=== PATIENT | male | born 1985 | race Caucasian/White ===

== ENCOUNTER 2017-03-26 02:02 | Emergency (ER) | payer MEDICAID, OTHER ==
--- NOTE | 2017-03-26 02:26 | ED ---
Alcohol HPI - General Source: family, EMS, RN notes reviewed Mode of arrival: EMS Limitations: altered mental status - History of Present Illness MD Complaint: alcohol intoxication <Lv Lee - Last Filed: 03/26/17 06:30> <Tushar Levi - Last Filed: 03/26/17 10:47> - General Chief Complaint: Alcohol Stated Complaint: ETOH Time Seen by Provider: 03/26/17 02:02 - History of Present Illness Initial Comments: This is a 31-year-old male was brought in by EMS for evaluation for altered mental status and lack of responsiveness. He was found lying on the side of a local street no trauma was reported the patient is reportedly drank 1 pint of liquor tonight. He does have a history apparently of methamphetamine abuse. He did respond to verbal or physical stimulation. No external signs of trauma. He did maintain his vital signs however and route. (Lv Lee) - Related Data Home Medications Medication Instructions Recorded Confirmed No Known Home Medications [No 03/26/17 03/26/17 Known Home Medications] Allergies Allergy/AdvReac Type Severity Reaction Status Date / Time No Known Allergies Allergy Verified 03/26/17 08:57 Review of Systems ROS Other: All systems not noted in ROS Statement are negative. Limitations: ROS unobtainable due to patients medical condition <Lv Lee - Last Filed: 03/26/17 06:30> ROS Other: All systems not noted in ROS Statement are negative. <Tushar Levi - Last Filed: 03/26/17 10:47> ROS Statement: Those systems with pertinent positive or pertinent negative responses have been documented in the HPI. 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 History of Any Multi-Drug Resistant Organisms: None Reported Additional Past Surgical History / Comment(s): Cardiac surgery as an , bilateral meniscus repair open, nasal reconstruction Past Psychological History: ADD/ADHD Smoking Status: Current every day smoker Past Alcohol Use History: Daily Past Drug Use History: Methamphetamine - Past Family History Father Family Medical History: Hypertension Additional Family Medical History / Comment(s): Father is age 56 with problems with addiction, hypertension, autoimmune disease unsure type, and psoratic arthritis Mother Family Medical History: No Reported History Additional Family Medical History / Comment(s): Mother is age 56 and has history of depression, possible bipolar disorder and anxiety. Patient's grandfather had bipolar disorder. Patient has 4 brothers that are healthy. He has no sisters. Patient does not have any children. <Lv Lee - Last Filed: 03/26/17 06:30> General Exam Limitations: altered mental status General appearance: obtunded Head exam: Present: atraumatic, normocephalic, normal inspection Eye exam: Present: normal appearance, PERRL, EOMI. Absent: scleral icterus, conjunctival injection, periorbital swelling ENT exam: Present: normal exam, mucous membranes moist Neck exam: Present: normal inspection. Absent: tenderness, meningismus, lymphadenopathy Respiratory exam: Present: normal lung sounds bilaterally. Absent: respiratory distress, wheezes, rales, rhonchi, stridor Cardiovascular Exam: Present: regular rate, normal rhythm, normal heart sounds. Absent: systolic murmur, diastolic murmur, rubs, gallop, clicks GI/Abdominal exam: Present: soft, normal bowel sounds. Absent: distended, tenderness, guarding, rebound, rigid Extremities exam: Present: normal inspection, full ROM, normal capillary refill. Absent: tenderness, pedal edema, joint swelling, calf tenderness Back exam: Present: normal inspection Neurological exam: Present: alert, altered, CN II-XII intact Psychiatric exam: Present: other (Unable to evaluate) Skin exam: Present: warm, dry, intact, normal color. Absent: rash <Lv Lee - Last Filed: 03/26/17 06:30> <Tushar Levi - Last Filed: 03/26/17 10:47> - General Exam Comments Initial Comments: This is a well-developed well-nourished unresponsive male (Lv Lee) Course <Lv Lee - Last Filed: 03/26/17 06:30> <Tushar Levi - Last Filed: 03/26/17 10:47> Vital Signs 03/26/17 03/26/17 03/26/17 02:03 02:25 03:15 Temperature 96 F L Pulse Rate 59 L 52 L 54 L Respiratory 14 12 10 L Rate Blood Pressure 111/70 107/59 106/59 O2 Sat by Pulse 95 100 100 Oximetry 03/26/17 03/26/17 03/26/17 04:15 05:32 05:45 Temperature Pulse Rate 56 L 62 56 L Respiratory 10 L 12 Rate Blood Pressure 101/59 119/63 116/59 O2 Sat by Pulse 100 100 100 Oximetry 03/26/17 03/26/17 03/26/17 06:45 07:41 08:00 Temperature Pulse Rate 64 64 65 Respiratory 12 12 Rate Blood Pressure 105/56 100/54 98/56 O2 Sat by Pulse 100 100 100 Oximetry 03/26/17 03/26/17 08:43 10:03 Temperature Pulse Rate 67 74 Respiratory 12 16 Rate Blood Pressure 102/56 113/59 O2 Sat by Pulse 100 99 Oximetry - Reevaluation(s) Reevaluation #1: 03/26/17 02:26 The patient did respond to sternal rub. (Lv Lee) Reevaluation #2: 03/26/17 06:30 The patient's care will be endorsed to Dr. Levi who will make the final disposition. This time the patient is just awaiting metabolism of alcohol he ingested. I did have a conversation the patient's father regarding this. (Lv Lee) Reevaluation #3: 03/26/17 08:02 Patient reevaluated and does respond to touch. Patient then falls immediately back to sleep. Patient does demonstrate protecting the airway. 03/26/17 10:46 Patient again reexamined and improved. Patient is awake, alert and oriented 3. Patient has no complaints. Patient can be discharged to parents. (Tushar Levi) Medical Decision Making - Lab Data Result diagrams: 03/26/17 02:42 03/26/17 02:42 - EKG Data -: EKG Interpreted by [place] EKG shows normal: sinus rhythm (Sinus bradycardia rate of 58. Interval 156 QRS of 96 QT since QTC of 42/473 st-t wave changes.) <Lv Lee - Last Filed: 03/26/17 06:30> - Lab Data Result diagrams: 03/26/17 02:42 03/26/17 02:42 <Tushar Levi - Last Filed: 03/26/17 10:47> - Lab Data Lab Results 03/26/17 03/26/17 03/26/17 Range/Units 02:42 02:42 02:42 WBC 4.5 (3.8-10.6) k/uL RBC 4.26 L (4.30-5.90) m/uL Hgb 14.0 (13.0-17.5) gm/dL Hct 42.6 (39.0-53.0) % MCV 99.9 (80.0-100.0) fL MCH 32.9 (25.0-35.0) pg MCHC 32.9 (31.0-37.0) g/dL RDW 14.2 (11.5-15.5) % Plt Count 292 (150-450) k/uL Neutrophils % 56 % Lymphocytes % 31 % Monocytes % 6 % Eosinophils % 4 % Basophils % 1 % Neutrophils # 2.5 (1.3-7.7) k/uL Lymphocytes # 1.4 (1.0-4.8) k/uL Monocytes # 0.3 (0-1.0) k/uL Eosinophils # 0.2 (0-0.7) k/uL Basophils # 0.0 (0-0.2) k/uL Macrocytosis Slight Sodium 147 H (137-145) mmol/L Potassium 3.9 (3.5-5.1) mmol/L Chloride 108 H (98-107) mmol/L Carbon Dioxide 26 (22-30) mmol/L Anion Gap 13 mmol/L BUN 18 (9-20) mg/dL Creatinine 0.80 (0.66-1.25) mg/dL Est GFR (MDRD) Af Amer >60 (>60 ml/min/1.73 sqM) Est GFR (MDRD) Non-Af >60 (>60 ml/min/1.73 sqM) Glucose 85 (74-99) mg/dL Calcium 8.5 (8.4-10.2) mg/dL Magnesium 2.2 (1.6-2.3) mg/dL Total Bilirubin 0.2 (0.2-1.3) mg/dL AST 46 (17-59) U/L ALT 69 (21-72) U/L Alkaline Phosphatase 76 (38-126) U/L Total Creatine Kinase 484 H (55-170) U/L CK-MB (CK-2) 6.7 H* (0.0-2.4) ng/mL CK-MB (CK-2) Rel Index 1.4 Troponin I <0.012 (0.000-0.034) ng/mL Total Protein 6.5 (6.3-8.2) g/dL Albumin 4.2 (3.5-5.0) g/dL Amylase <30 L (30-110) U/L Lipase 52 (23-300) U/L TSH 1.660 (0.465-4.680) mIU/L Urine Opiates Screen (NotDetected) Ur Oxycodone Screen (NotDetected) Urine Methadone Screen (NotDetected) Ur Propoxyphene Screen (NotDetected) Acetaminophen <10.0 ug/mL Ur Barbiturates Screen (NotDetected) U Tricyclic Antidepress (NotDetected) Ur Phencyclidine Scrn (NotDetected) Ur Amphetamines Screen (NotDetected) U Methamphetamines Scrn (NotDetected) U Benzodiazepines Scrn (NotDetected) Urine Cocaine Screen (NotDetected) U Marijuana (THC) Screen (NotDetected) Serum Alcohol 264 mg/dL 03/26/17 Range/Units 02:42 WBC (3.8-10.6) k/uL RBC (4.30-5.90) m/uL Hgb (13.0-17.5) gm/dL Hct (39.0-53.0) % MCV (80.0-100.0) fL MCH (25.0-35.0) pg MCHC (31.0-37.0) g/dL RDW (11.5-15.5) % Plt Count (150-450) k/uL Neutrophils % % Lymphocytes % % Monocytes % % Eosinophils % % Basophils % % Neutrophils # (1.3-7.7) k/uL Lymphocytes # (1.0-4.8) k/uL Monocytes # (0-1.0) k/uL Eosinophils # (0-0.7) k/uL Basophils # (0-0.2) k/uL Macrocytosis Sodium (137-145) mmol/L Potassium (3.5-5.1) mmol/L Chloride (98-107) mmol/L Carbon Dioxide (22-30) mmol/L Anion Gap mmol/L BUN (9-20) mg/dL Creatinine (0.66-1.25) mg/dL Est GFR (MDRD) Af Amer (>60 ml/min/1.73 sqM) Est GFR (MDRD) Non-Af (>60 ml/min/1.73 sqM) Glucose (74-99) mg/dL Calcium (8.4-10.2) mg/dL Magnesium (1.6-2.3) mg/dL Total Bilirubin (0.2-1.3) mg/dL AST (17-59) U/L ALT (21-72) U/L Alkaline Phosphatase (38-126) U/L Total Creatine Kinase (55-170) U/L CK-MB (CK-2) (0.0-2.4) ng/mL CK-MB (CK-2) Rel Index Troponin I (0.000-0.034) ng/mL Total Protein (6.3-8.2) g/dL Albumin (3.5-5.0) g/dL Amylase (30-110) U/L Lipase (23-300) U/L TSH (0.465-4.680) mIU/L Urine Opiates Screen Not Detected (NotDetected) Ur Oxycodone Screen Not Detected (NotDetected) Urine Methadone Screen Not Detected (NotDetected) Ur Propoxyphene Screen Not Detected (NotDetected) Acetaminophen ug/mL Ur Barbiturates Screen Not Detected (NotDetected) U Tricyclic Antidepress Not Detected (NotDetected) Ur Phencyclidine Scrn Not Detected (NotDetected) Ur Amphetamines Screen Not Detected (NotDetected) U Methamphetamines Scrn Not Detected (NotDetected) U Benzodiazepines Scrn Not Detected (NotDetected) Urine Cocaine Screen Not Detected (NotDetected) U Marijuana (THC) Screen Not Detected (NotDetected) Serum Alcohol mg/dL Disposition <Lv Lee - Last Filed: 03/26/17 06:30> Time of Disposition: 10:47 <Tushar Levi - Last Filed: 03/26/17 10:47> Clinical Impression: Alcoholic intoxication Disposition: HOME SELF-CARE Condition: Stable Instructions: Alcohol Intoxication (ED) Additional Instructions: Limit alcohol use. Follow-up with your doctor in the beginning of the week. Return for drowsiness, worsening or changing symptoms or other concerns. Referrals: Joseph Robins MD [Primary Care Provider] - 1-2 days
[2017-03-26 02:58] LABS: Basophils % (A) 1 %; CH 33.2; CHCM 33.4; Eosinophils # (A) 0.2 k/uL (0-0.7); Eosinophils % (A) 4 %; HCT 42.6 % (39.0-53.0); Luc # (Auto) 0.15; Luc % (Auto) 3; Lymphocytes # (A) 1.4 k/uL (1.0-4.8); Lymphocytes % (A) 31 %; MCH 32.9 pg (25.0-35.0); MCHC 32.9 g/dL (31.0-37.0); MCV 99.9 fL (80.0-100.0); Macrocytosis Slight; Monocytes # (A) 0.3 k/uL (0-1.0); Monocytes % (A) 6 %; Neutrophils # (A) 2.5 k/uL (1.3-7.7); Neutrophils % (A) 56 %; RBC 4.26 m/uL (4.30-5.90); RDW 14.2 % (11.5-15.5); WBC 4.5 k/uL (3.8-10.6); WBC (Perox) 4.65
[2017-03-26 03:06] LABS: ALT 69 U/L (21-72); AST 46 U/L (17-59); Acetaminophen <10.0 ug/mL; Alkaline Phosphatase 76 U/L (38-126); Amylase <30 U/L (30-110); Anion Gap 13 mmol/L; Blood Urea Nitrogen 18 mg/dL (9-20); Calcium 8.5 mg/dL (8.4-10.2); Carbon Dioxide 26 mmol/L (22-30); Chloride 108 mmol/L (98-107); Glucose 85 mg/dL (74-99); Magnesium 2.2 mg/dL (1.6-2.3); Non-African American GFR(MDRD) >60 (>60 ml/min/1.73 sqM); Potassium 3.9 mmol/L (3.5-5.1); Sodium 147 mmol/L (137-145); Total Bilirubin 0.2 mg/dL (0.2-1.3); Total Protein 6.5 g/dL (6.3-8.2)
[2017-03-26 03:14] LABS: Alcohol 264 mg/dL
[2017-03-26 03:16] LABS: Creatine Kinase 484 U/L (55-170)
--- NOTE | 2017-03-26 03:21 | XR ---
EXAM: XR Chest, 1 View CLINICAL HISTORY: Reason: pain TECHNIQUE: Frontal view of the chest. COMPARISON: No relevant prior studies available. FINDINGS: Lungs: Unremarkable. No consolidation. Pleural space: Unremarkable. No pneumothorax. Heart: Unremarkable. No cardiomegaly. Mediastinum: Unremarkable. Bones/joints: No acute fractures. IMPRESSION: No acute cardiopulmonary process.
[2017-03-26 03:29] LABS: Troponin I <0.012 ng/mL (0.000-0.034)
[2017-03-26 03:34] LABS: Creatine Kinase MB 6.7 ng/mL (0.0-2.4)
--- NOTE | 2017-03-26 03:39 | CT ---
EXAM: CT Head Without Intravenous Contrast CLINICAL HISTORY: EtOH. Unresponsive. TECHNIQUE: Axial computed tomography images of the head/brain without intravenous contrast. DLP is 1098 mGy-cm. This CT exam was performed using one or more of the following dose reduction techniques: automated exposure control, adjustment of the mA and/or kV according to patient size, and/or use of iterative reconstruction technique. Coronal and sagittal reformatted images were acquired. COMPARISON: None FINDINGS: Brain: No hemorrhage. No significant white matter disease. No edema. Likely dystrophic calcifications in the right inferior frontal lobe. No associated mass effect. Ventricles: No ventriculomegaly. Bones/joints: No acute fracture. Soft tissues: Unremarkable. Sinuses: Chronic sinusitis. Mastoid air cells: Unremarkable as visualized. No mastoid effusion. IMPRESSION: No acute infarct, hemorrhage, or mass effect. EXAM: CT Cervical Spine Without Intravenous Contrast CLINICAL HISTORY: EtOH. Unresponsive. TECHNIQUE: Axial computed tomography images of the cervical spine without intravenous contrast. DLP is 421 mGy-cm. This CT exam was performed using one or more of the following dose reduction techniques: automated exposure control, adjustment of the mA and/or kV according to patient size, and/or use of iterative reconstruction technique. Coronal and sagittal reformatted images were acquired. COMPARISON: Correlated with the earlier chest radiograph.. FINDINGS: Vertebrae: Unremarkable. No acute fracture. Discs/spinal canal/neural foramina: No acute findings. No spinal canal stenosis. Soft tissues: Unremarkable. Lung apices: Innumerable thin-walled lucencies. IMPRESSION: No acute fractures or malalignment. Query emphysematous changes in the lung apices, partially visualized. Recommend nonemergent followup to exclude other entities such as Langerhans' cell histiocytosis.
[2017-03-26 10:50] VITALS: TEMP 97.7
[2017-03-26 13:25] VITALS: BP 110/62; PULSE 65; RESP 14
== END 2017-03-26 14:21 | disposition home or self-care (01) ==
LOC: EC 02:02
DX: F10.120 Alcohol abuse with intoxication, uncomplicated (principal); R41.82 Altered mental status, unspecified; F17.200 Nicotine dependence, unspecified, uncomplicated
CPT/HCPCS: 36415; 70450; 71010; 72125; 80053; 80306; 80320; 82150; 82550; 82553; 83520; 83690; 83735; 84443; 84484; 85025; 93005; 99285

== ENCOUNTER 2017-10-21 06:27 | Inpatient (IN) | payer OTHER ==
[2017-10-21] MEDS ORDERED: KETOROLAC 60 MG/2 ML VIAL IVP STA (06:29)
[2017-10-21] MEDS ORDERED: SODIUM CHLORIDE 0.9% 500 ML IV STA (06:31)
--- NOTE | 2017-10-21 06:39 | ED ---
General Adult HPI - General Source: RN notes reviewed <Kwame Manning - Last Filed: 10/21/17 06:39> <Kwame Rojo - Last Filed: 10/21/17 09:40> - General Stated complaint: Cardiac Arrest Time Seen by Provider: 10/21/17 06:27 - History of Present Illness Initial comments: This is a 31-year-old male who presents emergency Department with a past medical history significant for drug abuse. According to the family the patient was found unresponsive and not breathing and it was 2 minutes prior to the police arriving at the house they started CPR immediately paramedics arrived shortly thereafter they continued CPR for another 10-15 minutes at which time pulses returned. Paramedics stated intubated the patient and given the patient Narcan as well as 1 of epinephrine. Since that time the patient's had a blood pressure has been tachycardic and has been completely unresponsive. Family stated that he might have taken some Xanax but they have no proof of that. According to the paramedics that patient's eyes were fixed and dilated and nonreactive on arrival prior to Narcan. Other history is available this time no family is, the patient currently (Kwame Manning) - Related Data Home Medications Medication Instructions Recorded Confirmed No Known Home Medications [No 03/26/17 03/26/17 Known Home Medications] Allergies Allergy/AdvReac Type Severity Reaction Status Date / Time No Known Allergies Allergy Verified 10/21/17 06:43 Review of Systems ROS Other: All systems not noted in ROS Statement are negative. <Kwame Manning - Last Filed: 10/21/17 06:39> ROS Other: All systems not noted in ROS Statement are negative. <Kwame Rojo - Last Filed: 10/21/17 09:40> ROS Statement: Those systems with pertinent positive or pertinent negative responses have been documented in the HPI. 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 History of Any Multi-Drug Resistant Organisms: None Reported Additional Past Surgical History / Comment(s): Cardiac surgery as an infant, bilateral meniscus repair open, nasal reconstruction Past Psychological History: ADD/ADHD Smoking Status: Current every day smoker Past Alcohol Use History: Daily Past Drug Use History: Methamphetamine - Past Family History Father Family Medical History: Hypertension Additional Family Medical History / Comment(s): Father is age 56 with problems with addiction, hypertension, autoimmune disease unsure type, and psoratic arthritis Mother Family Medical History: No Reported History Additional Family Medical History / Comment(s): Mother is age 56 and has history of depression, possible bipolar disorder and anxiety. Patient's grandfather had bipolar disorder. Patient has 4 brothers that are healthy. He has no sisters. Patient does not have any children. <Kwame Manning - Last Filed: 10/21/17 06:39> General Exam <Kwame Manning - Last Filed: 10/21/17 06:39> <Kwame Rojo - Last Filed: 10/21/17 09:40> - General Exam Comments Initial Comments: GENERAL: Patient is well-developed and well-nourished. Patient is completely unresponsive ENT: Neck is soft and supple. No significant lymphadenopathy is noted. Oropharynx is clear. Moist mucous membranes. There is no thyroid enlargement and no masses were felt. EYES: The sclera were anicteric and conjunctiva were pink and moist. Eyes are dilated bilaterally and nonreactive PULMONARY: Patient is intubated breath sounds are diminished on the left tubal be pulled back. CARDIOVASCULAR: There is a regular rate and rhythm without any murmurs gallops or rubs. ABDOMEN: Abdomen is soft and nondistended SKIN: Skin is clear with no lesions or rashes and otherwise unremarkable. NEUROLOGIC: Patient is unresponsive MUSCULOSKELETAL: Normal extremities with adequate strength and full range of motion. No lower extremity swelling or edema. (Kwame Manning) Vital Signs 10/21/17 10/21/17 10/21/17 06:38 07:03 08:58 Temperature 94.2 F L 94.5 F L Pulse Rate 114 H 102 H 101 H Respiratory 22 18 Rate Blood Pressure 143/74 136/69 133/69 O2 Sat by Pulse 99 100 Oximetry Medical Decision Making <Kwame Manning - Last Filed: 10/21/17 06:39> - Lab Data Result diagrams: 10/21/17 06:30 10/21/17 06:30 - Radiology Data Radiology results: report reviewed (CT brain negative chest x-ray positive pneumonia CTA pending), image reviewed <Kwame Rojo - Last Filed: 10/21/17 09:40> - Medical Decision Making EKG shows sinus tachycardia at 113 bpm CO interval is 154 QRS is 94 QT interval 344 QTC is 471 per patient's EKG shows some ST segment depression in leads II, III, and F aVF and slight ST segment elevation in aVR. There is also some ST segment depression in precordial leads V4 through V6. Dr. Rojo taking over the care of this patient at 7 AM (Kwame Manning) 31 male positive cardiopulmonary arrest secondary to likely overdose, patient admitted ICU for continued critical care monitoring, cardiopulmonary and hemodynamic support (Kwame Rojo) - Lab Data Lab Results 10/21/17 10/21/17 10/21/17 Range/Units 06:30 06:30 06:30 WBC 9.6 (3.8-10.6) k/uL RBC 4.11 L (4.30-5.90) m/uL Hgb 13.1 (13.0-17.5) gm/dL Hct 40.4 (39.0-53.0) % MCV 98.3 (80.0-100.0) fL MCH 31.9 (25.0-35.0) pg MCHC 32.5 (31.0-37.0) g/dL RDW 14.1 (11.5-15.5) % Plt Count 245 (150-450) k/uL Neutrophils % 87 % Lymphocytes % 10 % Monocytes % 3 % Eosinophils % 0 % Basophils % 0 % Neutrophils # 8.4 H (1.3-7.7) k/uL Lymphocytes # 1.0 (1.0-4.8) k/uL Monocytes # 0.3 (0-1.0) k/uL Eosinophils # 0.0 (0-0.7) k/uL Basophils # 0.0 (0-0.2) k/uL PT (9.0-12.0) sec INR (<1.2) APTT (22.0-30.0) sec D-Dimer (<0.60) mg/L FEU Sample Site ABG pH (7.35-7.45) ABG pCO2 (35-45) mmHg ABG pO2 (83-108) mmHg ABG HCO3 (21-25) mmol/L ABG Total CO2 (19-24) mmol/L ABG O2 Saturation (94-97) % ABG Base Excess mmol/L Matt Test FiO2 % Sodium 145 (137-145) mmol/L Potassium 4.0 (3.5-5.1) mmol/L Chloride 109 H (98-107) mmol/L Carbon Dioxide 16 L (22-30) mmol/L Anion Gap 20 mmol/L BUN 21 H (9-20) mg/dL Creatinine 1.11 (0.66-1.25) mg/dL Est GFR (MDRD) Af Amer >60 (>60 ml/min/1.73 sqM) Est GFR (MDRD) Non-Af >60 (>60 ml/min/1.73 sqM) Glucose 300 H (74-99) mg/dL POC Glucose (mg/dL) (75-99) mg/dL POC Glu Deputy Sheriff ID Calcium 8.3 L (8.4-10.2) mg/dL Total Bilirubin 0.2 (0.2-1.3) mg/dL AST 127 H (17-59) U/L ALT 142 H (21-72) U/L Alkaline Phosphatase 87 (38-126) U/L Total Creatine Kinase 169 (55-170) U/L CK-MB (CK-2) 2.7 H* (0.0-2.4) ng/mL CK-MB (CK-2) Rel Index 1.6 Troponin I <0.012 (0.000-0.034) ng/mL Total Protein 6.0 L (6.3-8.2) g/dL Albumin 3.8 (3.5-5.0) g/dL Salicylates <1.0 mg/dL Urine Opiates Screen (NotDetected) Ur Oxycodone Screen (NotDetected) Urine Methadone Screen (NotDetected) Ur Propoxyphene Screen (NotDetected) Acetaminophen <10.0 ug/mL Ur Barbiturates Screen (NotDetected) U Tricyclic Antidepress (NotDetected) Ur Phencyclidine Scrn (NotDetected) Ur Amphetamines Screen (NotDetected) U Methamphetamines Scrn (NotDetected) U Benzodiazepines Scrn (NotDetected) Urine Cocaine Screen (NotDetected) U Marijuana (THC) Screen (NotDetected) Serum Alcohol 121 mg/dL 10/21/17 10/21/17 10/21/17 Range/Units 06:30 06:30 06:38 WBC (3.8-10.6) k/uL RBC (4.30-5.90) m/uL Hgb (13.0-17.5) gm/dL Hct (39.0-53.0) % MCV (80.0-100.0) fL MCH (25.0-35.0) pg MCHC (31.0-37.0) g/dL RDW (11.5-15.5) % Plt Count (150-450) k/uL Neutrophils % % Lymphocytes % % Monocytes % % Eosinophils % % Basophils % % Neutrophils # (1.3-7.7) k/uL Lymphocytes # (1.0-4.8) k/uL Monocytes # (0-1.0) k/uL Eosinophils # (0-0.7) k/uL Basophils # (0-0.2) k/uL PT 10.5 (9.0-12.0) sec INR 1.1 (<1.2) APTT 19.6 L (22.0-30.0) sec D-Dimer 4.34 H (<0.60) mg/L FEU Sample Site ABG pH (7.35-7.45) ABG pCO2 (35-45) mmHg ABG pO2 (83-108) mmHg ABG HCO3 (21-25) mmol/L ABG Total CO2 (19-24) mmol/L ABG O2 Saturation (94-97) % ABG Base Excess mmol/L Matt Test FiO2 % Sodium (137-145) mmol/L Potassium (3.5-5.1) mmol/L Chloride (98-107) mmol/L Carbon Dioxide (22-30) mmol/L Anion Gap mmol/L BUN (9-20) mg/dL Creatinine (0.66-1.25) mg/dL Est GFR (MDRD) Af Amer (>60 ml/min/1.73 sqM) Est GFR (MDRD) Non-Af (>60 ml/min/1.73 sqM) Glucose (74-99) mg/dL POC Glucose (mg/dL) 294 H (75-99) mg/dL POC Glu Deputy Sheriff José Larson Calcium (8.4-10.2) mg/dL Total Bilirubin (0.2-1.3) mg/dL AST (17-59) U/L ALT (21-72) U/L Alkaline Phosphatase (38-126) U/L Total Creatine Kinase (55-170) U/L CK-MB (CK-2) (0.0-2.4) ng/mL CK-MB (CK-2) Rel Index Troponin I (0.000-0.034) ng/mL Total Protein (6.3-8.2) g/dL Albumin (3.5-5.0) g/dL Salicylates mg/dL Urine Opiates Screen Not Detected (NotDetected) Ur Oxycodone Screen Detected H (NotDetected) Urine Methadone Screen Not Detected (NotDetected) Ur Propoxyphene Screen Not Detected (NotDetected) Acetaminophen ug/mL Ur Barbiturates Screen Not Detected (NotDetected) U Tricyclic Antidepress Detected H (NotDetected) Ur Phencyclidine Scrn Not Detected (NotDetected) Ur Amphetamines Screen Not Detected (NotDetected) U Methamphetamines Scrn Not Detected (NotDetected) U Benzodiazepines Scrn Detected H (NotDetected) Urine Cocaine Screen Not Detected (NotDetected) U Marijuana (THC) Screen Not Detected (NotDetected) Serum Alcohol mg/dL 10/21/17 Range/Units 07:01 WBC (3.8-10.6) k/uL RBC (4.30-5.90) m/uL Hgb (13.0-17.5) gm/dL Hct (39.0-53.0) % MCV (80.0-100.0) fL MCH (25.0-35.0) pg MCHC (31.0-37.0) g/dL RDW (11.5-15.5) % Plt Count (150-450) k/uL Neutrophils % % Lymphocytes % % Monocytes % % Eosinophils % % Basophils % % Neutrophils # (1.3-7.7) k/uL Lymphocytes # (1.0-4.8) k/uL Monocytes # (0-1.0) k/uL Eosinophils # (0-0.7) k/uL Basophils # (0-0.2) k/uL PT (9.0-12.0) sec INR (<1.2) APTT (22.0-30.0) sec D-Dimer (<0.60) mg/L FEU Sample Site LRAD ABG pH 7.19 L* (7.35-7.45) ABG pCO2 40 (35-45) mmHg ABG pO2 >400 H (83-108) mmHg ABG HCO3 15 L (21-25) mmol/L ABG Total CO2 16 L (19-24) mmol/L ABG O2 Saturation 100.0 H (94-97) % ABG Base Excess -13.1 mmol/L Matt Test Yes FiO2 100 % Sodium (137-145) mmol/L Potassium (3.5-5.1) mmol/L Chloride (98-107) mmol/L Carbon Dioxide (22-30) mmol/L Anion Gap mmol/L BUN (9-20) mg/dL Creatinine (0.66-1.25) mg/dL Est GFR (MDRD) Af Amer (>60 ml/min/1.73 sqM) Est GFR (MDRD) Non-Af (>60 ml/min/1.73 sqM) Glucose (74-99) mg/dL POC Glucose (mg/dL) (75-99) mg/dL POC Glu Deputy Sheriff ID Calcium (8.4-10.2) mg/dL Total Bilirubin (0.2-1.3) mg/dL AST (17-59) U/L ALT (21-72) U/L Alkaline Phosphatase (38-126) U/L Total Creatine Kinase (55-170) U/L CK-MB (CK-2) (0.0-2.4) ng/mL CK-MB (CK-2) Rel Index Troponin I (0.000-0.034) ng/mL Total Protein (6.3-8.2) g/dL Albumin (3.5-5.0) g/dL Salicylates mg/dL Urine Opiates Screen (NotDetected) Ur Oxycodone Screen (NotDetected) Urine Methadone Screen (NotDetected) Ur Propoxyphene Screen (NotDetected) Acetaminophen ug/mL Ur Barbiturates Screen (NotDetected) U Tricyclic Antidepress (NotDetected) Ur Phencyclidine Scrn (NotDetected) Ur Amphetamines Screen (NotDetected) U Methamphetamines Scrn (NotDetected) U Benzodiazepines Scrn (NotDetected) Urine Cocaine Screen (NotDetected) U Marijuana (THC) Screen (NotDetected) Serum Alcohol mg/dL Critical Care Time Critical Care Time: Yes Total Critical Care Time: 65 <Kwame Rojo - Last Filed: 10/21/17 09:40> Disposition <Kwame Manning - Last Filed: 10/21/17 06:39> <Kwame Rojo - Last Filed: 10/21/17 09:40> Clinical Impression: Opioid use disorder, mild, abuse, Cardiac arrest, Signs of return of spontaneous circulation, Overdose, Cardiopulmonary arrest, Pneumonia Disposition: ADMITTED IP TO THIS HOSP Condition: Critical Referrals: None,Stated [Primary Care Provider] - 1-2 days
[2017-10-21 06:46] LABS: Basophils % (A) 0 %; Eosinophils % (A) 0 %; HCT 40.4 % (39.0-53.0); HGB 13.1 gm/dL (13.0-17.5); Lymphocytes % (A) 10 %; MCH 31.9 pg (25.0-35.0); MCHC 32.5 g/dL (31.0-37.0); MCV 98.3 fL (80.0-100.0); Mean Platelet Volume 8.3; Monocytes # (A) 0.3 k/uL (0-1.0); Monocytes % (A) 3 %; Neutrophils # (A) 8.4 k/uL (1.3-7.7); Neutrophils % (A) 87 %; Platelet Count 245 k/uL (150-450); RBC 4.11 m/uL (4.30-5.90); RDW 14.1 % (11.5-15.5); WBC 9.6 k/uL (3.8-10.6)
[2017-10-21 06:48] LABS: Glucose,Whole Blood 294 mg/dL (75-99)
[2017-10-21 06:55] LABS: ALT 142 U/L (21-72); AST 127 U/L (17-59); Acetaminophen <10.0 ug/mL; Albumin 3.8 g/dL (3.5-5.0); Alkaline Phosphatase 87 U/L (38-126); Anion Gap 20 mmol/L; Blood Urea Nitrogen 21 mg/dL (9-20); Calcium 8.3 mg/dL (8.4-10.2); Carbon Dioxide 16 mmol/L (22-30); Chloride 109 mmol/L (98-107); Glucose 300 mg/dL (74-99); Salicylate <1.0 mg/dL; Sodium 145 mmol/L (137-145); Total Bilirubin 0.2 mg/dL (0.2-1.3)
[2017-10-21 06:56] LABS: Alcohol 121 mg/dL
[2017-10-21 06:57] LABS: Amphetamine Screen,Urine Not Detected (NotDetected); Barbiturate Screen,Urine Not Detected (NotDetected); Benzodiazepines Screen,Urine Detected (NotDetected); Cocaine Screen,Urine Not Detected (NotDetected); Methadone Screen, Urine Not Detected (NotDetected); Opiate Screen,Urine Not Detected (NotDetected); Oxycodone Screen, Urine Detected (NotDetected); Phencyclidine Screen,Urine Not Detected (NotDetected); Tricyclic Antidepressant,Urine Detected (NotDetected); Urn Cannabinoid Scrn Not Detected (NotDetected)
[2017-10-21 07:06] LABS: ABG Base Excess -13.1 mmol/L; ABG HCO3 15 mmol/L (21-25); ABG PCO2 40 mmHg (35-45); ABG PO2 >400 mmHg (83-108); ABG TCO2 16 mmol/L (19-24)
[2017-10-21 07:06] LABS: Creatine Kinase 169 U/L (55-170)
[2017-10-21 07:10] LABS: ABG PH 7.19 (7.35-7.45)
[2017-10-21 07:20] LABS: Creatine Kinase MB 2.7 ng/mL (0.0-2.4); Troponin I <0.012 ng/mL (0.000-0.034)
--- NOTE | 2017-10-21 07:46 | XR ---
EXAMINATION: XR chest 1V portable DATE AND TIME: 10/21/2017 7:24 AM ORDERING PROVIDER: Kwame Manning CLINICAL INDICATION: Pain TECHNIQUE: PA and lateral COMPARISON: None. DESCRIPTION: ET tube tip superimposed over the mid trachea, just caudal to the level of the collicula r heads. NG tube present, its port superimposed over the heart and its tip superimposed at the expect ed position of the esophageal-gastric junction -NG tube may be better placed 12 cm distally. There are scattered linear bands of added opacity in the right upper lung zone and the left lower filomena g zone predominantly. These are consistent with multifocal regions of atelectasis,, a finding of whic h is consolidation with air bronchograms in the retrocardiac lung, consistent with clinical diagnosis of left lower lobe bronchopneumonia. There is no evidence of pulmonary edema. Cardiac silhouette unremarkable, as are the bones and soft tissues. Pleural spaces appear to be negative, but supine radiography cannot exclude pneumothorax. IMPRESSION: Dominant finding is left lower lobe consolidation with air bronchograms, consistent with a clinical d iagnosis of left lower lobe bronchopneumonia. Other findings as discussed.
--- NOTE | 2017-10-21 07:53 | CT ---
EXAMINATION: CT brain wo con DATE AND TIME: 10/21/2017 7:43 AM ORDERING PROVIDER: Kwame Manning CLINICAL INDICATION: Pain TECHNIQUE: Standard departmental protocol. DLP 1027.3 mGy-cm. COMPARISON: CT 03/26/2017 DESCRIPTION: The calvarium is intact. There is no intracranial hemorrhage. There is no mass or mass e ffect. There is no definite new attenuation defect. The previously seen lower right frontal lobe subt le curvilinear calcifications are redemonstrated, unchanged and likely incidental dystrophic calcific ations. Remainder of the intra-axial and extra-axial compartment examination is unremarkable. The paranasal sinuses, middle ear cavities, and mastoid sinus air cells are clear. The orbits are unremarkable. Note is made of symmetric atrophy of the temporalis, nonspecific but can correlate with a clinical di agnosis of bruxism. This appears slightly more prominent than the prior study. IMPRESSION: 1. NO ACUTE/INTRACRANIAL PROCESS. 2. Symmetric temporalis prominence noted, as discussed.
[2017-10-21 08:20] LABS: D-Dimer 4.34 mg/L FEU (<0.60)
[2017-10-21 08:24] LABS: INR 1.1 (<1.2); Prothrombin Time 10.5 sec (9.0-12.0)
[2017-10-21 08:37] LABS: Partial Thromboplastin Time 19.6 sec (22.0-30.0)
[2017-10-21] MEDS ORDERED: LEVOFLOXACIN 750MG-D5W PMX 750 MG in DEXTROSE/WATER 1 150ML.BAG IVPB STA (09:07)
[2017-10-21] MEDS ORDERED: RX INFO: IV CONTRAST WAS GIVEN 1 EACH MISC MISCELLANE PRN (09:08)
[2017-10-21] MEDS ORDERED: IPRATROPIUM-ALBUTEROL 3 ML NEB INHALATION PRN (09:36)
[2017-10-21] MEDS ORDERED: NALOXONE 0.4 MG/ML 1 ML VIAL IV PRN ×2 (09:36→14:15)
--- NOTE | 2017-10-21 10:37 | CT ---
CT CHEST FOR PULMONARY EMBOLISM. EXAMINATION TYPE: CT angio chest DATE OF EXAM: 10/21/2017 INDICATION: overdose, elevated d dimer CT DLP: 383.2 mGycm, Automated exposure control for dose reduction was used. CONTRAST: Patient injected with 100 mL of Omnipaque 350. COMPARISON: NONE TECHNIQUE: CT of the chest is performed on a spiral scan at 2 mm thick sections. Study is performed with intravenous contrast timed for evaluation for pulmonary embolism. This will limit additional po rtions of the evaluation. 3-D MIP images reconstructed by the technologist are reviewed on the compu ter in the coronal and sagittal planes. FINDINGS: There is an endotracheal tube present with the tip above the almita. Nasogastric tube trans verses the thorax with tip in the left upper quadrant, this is out of the [id number]. No persistent filling defects are evident to suggest an acute pulmonary embolism. Bibasilar infiltrat es are present, correlate for atelectasis or pneumonia. There is some mild infiltrate within the bila teral perihilar and right upper lobe as well. No mediastinal or hilar adenopathy enlarged by CT criteria is evident. The ascending aorta diameter at the level of the main pulmonary artery is 2.9 cm. The main pulmonary artery diameter at the bifur cation is 2.[address] section through the upper abdomen are unremarkable. IMPRESSIONS: 1. No acute pulmonary emboli. 2. Scattered infiltrates throughout the lungs. Atelectasis, pneumonia could be considered. Consider t he possibility of aspiration pneumonia.
--- NOTE | 2017-10-21 12:35 | P.CNPUL ---
History of Present Illness Consult date: 10/21/17 Reason for consult: other Chief complaint: Respiratory failure secondary to drug overdose History of present illness: Consult dated 10/21/2017 31-year-old male who we saw in the emergency department for respiratory failure secondary to drug overdose. He has an extensive history of drug abuse. The patient apparently was found by the father unresponsive. Apparently was breathing poorly breathing or may be even not breathing for at least 2 minutes prior to the police arriving. CPR was started immediately by paramedics. They continue for another 10 or 15 minutes at which time the patient had return of pulses. The patient was intubated at the scene and given Narcan as well as 1 mg her 1 amp of epinephrine. The patient's is currently in the emergency room on the ventilator. The patient's drug screen was at least positive for Tri- Cyclic antidepressants and opiates. His past medical history is positive osteoarthritis. He also apparently suffers from ADHD narcolepsy and had a ductus arteriosus. The patient has since had some additional surgeries as listed in the ER candy. He is a smoker. He apparently was recently in penitentiary for cooking up methamphetamines. He apparently also has abused alcohol. The rest of the history is not well delineated. Review of Systems ROS unobtainable: due to endotracheal tube Past Medical History Past Medical History: Osteoarthritis (OA) Additional Past Medical History / Comment(s): Narcolepsy, ADHD, patient was a preemie and underwent cardiac surgery as an . History of Any Multi-Drug Resistant Organisms: None Reported Additional Past Surgical History / Comment(s): Cardiac surgery as an , bilateral meniscus repair open, nasal reconstruction Past Psychological History: ADD/ADHD Smoking Status: Current every day smoker Past Alcohol Use History: Daily Past Drug Use History: Methamphetamine - Past Family History Father Family Medical History: Hypertension Additional Family Medical History / Comment(s): Father is age 56 with problems with addiction, hypertension, autoimmune disease unsure type, and psoratic arthritis Mother Family Medical History: No Reported History Additional Family Medical History / Comment(s): Mother is age 56 and has history of depression, possible bipolar disorder and anxiety. Patient's grandfather had bipolar disorder. Patient has 4 brothers that are healthy. He has no sisters. Patient does not have any children. Medications and Allergies Home Medications Medication Instructions Recorded Confirmed Type [id number] 295-545-33Eq 1 tab PO Q4HR PRN 10/21/17 10/21/17 History [Excedrin] Folic Acid 1 mg PO DAILY 10/21/17 10/21/17 History Gabapentin [Neurontin] 300 mg PO AC-BID 10/21/17 10/21/17 History Guaifen/Phenyleph/Acetaminophn 2 tab PO Q4H PRN 10/21/17 10/21/17 History [Tylenol Sinus Severe Caplet] Ibuprofen [Motrin Ib] 200 - 400 mg PO Q6H PRN 10/21/17 10/21/17 History Methotrexate Sodium [Methotrexate] 2.5 mg PO DAILY 10/21/17 10/21/17 History Pregabalin [Lyrica] 150 mg PO TID 10/21/17 10/21/17 History predniSONE 15 mg PO DAILY 10/21/17 10/21/17 History Allergies Allergy/AdvReac Type Severity Reaction Status Date / Time No Known Allergies Allergy Verified 10/21/17 10:24 Physical Exam Osteopathic Statement: *. No significant issues noted on an osteopathic structural exam other than those noted in the History and Physical/Consult. Vitals: Vital Signs Temp Pulse Resp BP Pulse Ox 10/21/17 10:44 110 H 18 150/82 100 10/21/17 09:50 97.9 F 113 H 18 144/75 100 10/21/17 09:33 105 H 18 143/83 100 10/21/17 08:58 101 H 133/69 10/21/17 08:33 95.7 F L 94 18 134/67 96 10/21/17 07:43 94.5 F L 95 18 139/66 100 10/21/17 07:13 90 18 135/68 100 10/21/17 07:03 94.5 F L 102 H 18 136/69 100 10/21/17 06:38 94.2 F L 114 H 22 143/74 99 Intake and Output 10/20/17 10/21/17 10/21/17 22:59 06:59 14:59 Output Total 600 Balance -600 Output: Urine 600 Uretheral (Mendoza) 600 Other: Weight 76.657 kg No acute distress, The patient is sedated, and has an orally placed endotracheal tube and NG tube HEENT examination is grossly unremarkable. Mucous membranes are moist. No oral lesions. Pupillary response is intact. Neck supple. Full range of motion. No adenopathy thyromegaly or neck vein distention. Cardiovascular examination reveals regular rhythm rate. S1-S2 normal. No S3 or S4. No discernible murmur noted. Lungs reveal diffuse rhonchi. Breath sounds are equal. No wheezes. No crackles. Abdomen soft with bowel sounds. No masses or tenderness. Extremities are intact. No cyanosis clubbing or edema. Skin is without rash or lesion. Neurologic examination could not be assessed. Results - Laboratory Findings CBC and BMP: 10/21/17 06:30 10/21/17 06:30 ABG ABG pH 7.19 (7.35-7.45) L* 10/21/17 07:01 ABG pCO2 40 mmHg (35-45) 10/21/17 07:01 ABG pO2 >400 mmHg (83-108) H 10/21/17 07:01 ABG O2 Saturation 100.0 % (94-97) H 10/21/17 07:01 PT/INR, D-dimer PT 10.5 sec (9.0-12.0) 10/21/17 06:30 INR 1.1 (<1.2) 10/21/17 06:30 D-Dimer 4.34 mg/L FEU (<0.60) H 10/21/17 06:30 Abnormal lab findings: Abnormal Labs 10/21/17 10/21/17 10/21/17 06:30 06:30 06:30 RBC 4.11 L Neutrophils # 8.4 H APTT D-Dimer ABG pH ABG pO2 ABG HCO3 ABG Total CO2 ABG O2 Saturation Chloride 109 H Carbon Dioxide 16 L BUN 21 H Glucose 300 H POC Glucose (mg/dL) Calcium 8.3 L AST 127 H ALT 142 H CK-MB (CK-2) 2.7 H* Total Protein 6.0 L Ur Oxycodone Screen U Tricyclic Antidepress U Benzodiazepines Scrn 10/21/17 10/21/17 10/21/17 06:30 06:30 06:38 RBC Neutrophils # APTT 19.6 L D-Dimer 4.34 H ABG pH ABG pO2 ABG HCO3 ABG Total CO2 ABG O2 Saturation Chloride Carbon Dioxide BUN Glucose POC Glucose (mg/dL) 294 H Calcium AST ALT CK-MB (CK-2) Total Protein Ur Oxycodone Screen Detected H U Tricyclic Antidepress Detected H U Benzodiazepines Scrn Detected H 10/21/17 07:01 RBC Neutrophils # APTT D-Dimer ABG pH 7.19 L* ABG pO2 >400 H ABG HCO3 15 L ABG Total CO2 16 L ABG O2 Saturation 100.0 H Chloride Carbon Dioxide BUN Glucose POC Glucose (mg/dL) Calcium AST ALT CK-MB (CK-2) Total Protein Ur Oxycodone Screen U Tricyclic Antidepress U Benzodiazepines Scrn - Diagnostic Findings Chest x-ray: image reviewed (Labs x-rays a medications are reviewed.) Assessment and Plan Assessment: Assessment Acute respiratory failure secondary to drug overdose, with an elevated alcohol level and a drug screen that was positive for TCAs, benzodiazepines, and opiates. History of polysubstance abuse Cardiopulmonary arrest with cardiopulmonary resuscitation and return of spontaneous circulation History of osteoarthritis History of narcolepsy History of ADHD History of ductus arteriosus History of ongoing tobacco use and abuse as well as alcohol use and abuse Previous use of methamphetamines Plan: Plan dated 10/21/2017. The patient is currently on the mechanical ventilator. We will start the patient on some propofol for sedation. Currently blood pressure is stable. Labs x-rays a medications are reviewed. We'll make sure the patient is on DuoNeb. The patient will also be placed on protonic 40 mg IV daily. We can use heparin 5000 units subcu every 8 hours for DVT prophylaxis. The patient will have a morning chest x-ray labs and blood gas. Additional recommendations and suggestions are forthcoming. Chest x-ray and CAT scan show diffuse bilateral infiltrates particularly consolidative in the left lower lobe. This may relate to aspiration pneumonia. If not or ready started, we will start him on some antibiotics. Prognosis is guarded. I did speak to his mother and stepfather down in the emergency room. They understand the severity of the situation. Time with Patient: Greater than 30
[2017-10-21] MEDS: PROPOFOL 1,000 MG in EMPTY BAG 1 BAG IV SCH ×2 (12:36→16:27)
[2017-10-21] MEDS ORDERED: ACETAMINOPHEN TAB 325 MG TAB PO PRN (14:15)
[2017-10-21] MEDS ORDERED: ARTIFICIAL TEARS OINTMENT 3.5 GM TUBE BOTH EYES PRN (14:15)
[2017-10-21 14:18] LABS: Glucose,Whole Blood 130 mg/dL (75-99)
[2017-10-21 14:47] LABS: ABG Base Excess 1.2 mmol/L; ABG HCO3 26 mmol/L (21-25); ABG Oxygen Saturation 95.6 % (94-97); ABG PCO2 39 mmHg (35-45); ABG PH 7.43 (7.35-7.45); ABG PO2 73 mmHg (83-108); ABG TCO2 27 mmol/L (19-24)
[2017-10-21 15:08] LABS: HCT 39.7 % (39.0-53.0); HGB 13.9 gm/dL (13.0-17.5); MCH 33.4 pg (25.0-35.0); MCV 95.5 fL (80.0-100.0); Mean Platelet Volume 7.7; Platelet Count 279 k/uL (150-450); RBC 4.16 m/uL (4.30-5.90); RDW 14.3 % (11.5-15.5); WBC 17.2 k/uL (3.8-10.6)
[2017-10-21 15:11] LABS: ALT 159 U/L (21-72); AST 136 U/L (17-59); Albumin 3.9 g/dL (3.5-5.0); Alkaline Phosphatase 60 U/L (38-126); Anion Gap 10 mmol/L; Blood Urea Nitrogen 26 mg/dL (9-20); Calcium 8.8 mg/dL (8.4-10.2); Carbon Dioxide 25 mmol/L (22-30); Chloride 110 mmol/L (98-107); Creatine Kinase 251 U/L (55-170); Glucose 128 mg/dL (74-99); Phosphorus 4.5 mg/dL (2.5-4.5); Potassium 4.1 mmol/L (3.5-5.1); Sodium 145 mmol/L (137-145); Total Bilirubin 0.3 mg/dL (0.2-1.3); Total Protein 6.2 g/dL (6.3-8.2)
[2017-10-21 15:48] LABS: Glucose,Whole Blood 122 mg/dL (75-99)
[2017-10-21] MEDS: HEPARIN SODIUM,PORCINE 5,000 UNIT/ML 1 ML VIAL SQ SCH ×2 (15:51→23:52)
[2017-10-21] MEDS: SODIUM CHLORIDE 0.9% 1,000 ML IV SCH ×2 (15:51→21:08)
[2017-10-21] MEDS: PIPERACILLIN-TAZOBACTAM 3.375 GM in DEXTROSE/WATER 1 50ML.BAG IVPB SCH ×2 (15:51→23:52)
[2017-10-21 15:53] LABS: INR 1.1 (<1.2); Prothrombin Time 10.9 sec (9.0-12.0)
--- NOTE | 2017-10-21 16:22 | P.CNNES ---
History of Present Illness Consult date: 10/21/17 Reason for Consult: This patient is admitted with drug overdose and intubation. History of Present Illness: This patient is a 31-year-old right-handed white male who was admitted today to the emergency room at [facility] for evaluation of episode of unresponsiveness and possible drug overdose. History was obtained from the patient's father today in the intensive care unit. Patient apparently was fine yesterday evening and went to bed at about 1 AM. Father came down at about 4 AM to check on the son and apparently found him collapsed on the floor. He was unresponsive and was not breathing. Father immediately started CPR on the patient. Please arrived within 2-5 minutes and they assisted with the CPR and resuscitation. EMS had arrived and took over her CPR management. The paramedics continued with CPR for about 15 minutes before his pulses were obtained. The paramedics estimated his downtime to be at least 15 minutes. He was given Narcan as well as epinephrine immediately and resuscitation was continued. He was intubated by the paramedics and transferred by EMS to the emergency room at [facility]. Patient was seen in the ER by Dr. Manning. The patient has an extensive history of drug abuse and was felt to have drug overdose. Urine drug screen did come back positive for tricyclic antidepressants, benzodiazepines, and opiates. According to the father the patient may have stolen some Xanax from his mother and may have use that as well. The patient was intubated in the ER and transferred to the intensive care unit where he is seen this afternoon. Father is at bedside. Apparently he has a rather extensive history of depression and suicidal ideation and attempts in the past. He is being treated for ADHD and narcolepsy. He also has severe arthritis for which she is on treatment. The patient remains intubated and is currently receiving Diprivan 50 mics at this time. His estimated downtime is felt to be at least 15 minutes before pulse was obtained. He did undergo a computed tomography scan of the brain in the emergency room which revealed no acute intracranial process. He is now intubated on the ventilator in the intensive care unit currently on a Diprivan drip. His neurological examination in the ICU reveals him to have fixed pupils at 4 mm. He does have corneal response intact as well as a gag reflex. He does withdraw to pain. Oculocephalic response is intact. According to the father the patient has a history of drug abuse in the past. He is also been severely depressed and as per the father had attempted suicide recently. We have explained that currently he is sedated and unresponsive and will need to follow him closely over the next several days. We've explained that he likely has some degree of anoxic encephalopathy from the cardiac arrest. We will obtain routine EEG for further evaluation. This was explained in detail to the father today at bedside. Neurology is now been consulted for further evaluation and recommendations. Review of Systems ROS unobtainable: due to endotracheal tube Constitutional: Denies chills, Denies fever Eyes: denies blurred vision, denies pain Ears, nose, mouth and throat: Denies headache, Denies sore throat Cardiovascular: Denies chest pain, Denies shortness of breath Gastrointestinal: Denies abdominal pain, Denies diarrhea, Denies nausea, Denies vomiting Musculoskeletal: Denies myalgias Integumentary: Denies pruritus, Denies rash Neurological: Reports tremors, Denies numbness, Denies weakness Psychiatric: Reports anxiety, Reports depression, Reports mood swings, Reports sleep disturbances Endocrine: Denies fatigue, Denies weight change Past Medical History Past Medical History: Osteoarthritis (OA) Additional Past Medical History / Comment(s): Narcolepsy, ADHD, 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 History of Any Multi-Drug Resistant Organisms: None Reported Additional Past Surgical History / Comment(s): Cardiac surgery as an infant, bilateral meniscus repair open, nasal reconstruction Past Psychological History: ADD/ADHD Smoking Status: Current every day smoker Past Alcohol Use History: Daily Past Drug Use History: Methamphetamine - Past Family History Father Family Medical History: Hypertension Additional Family Medical History / Comment(s): Father is age 56 with problems with addiction, hypertension, autoimmune disease unsure type, and psoratic arthritis Mother Family Medical History: No Reported History Additional Family Medical History / Comment(s): Mother is age 56 and has history of depression, possible bipolar disorder and anxiety. Patient's grandfather had bipolar disorder. Patient has 4 brothers that are healthy. He has no sisters. Patient does not have any children. Medications and Allergies Home Medications Medication Instructions Recorded Confirmed Type [id number] 1 tab PO Q4HR PRN 10/21/17 10/21/17 History [Excedrin] Folic Acid 1 mg PO DAILY 10/21/17 10/21/17 History Gabapentin [Neurontin] 300 mg PO AC-BID 10/21/17 10/21/17 History Guaifen/Phenyleph/Acetaminophn 2 tab PO Q4H PRN 10/21/17 10/21/17 History [Tylenol Sinus Severe Caplet] Ibuprofen [Motrin Ib] 200 - 400 mg PO Q6H PRN 10/21/17 10/21/17 History Methotrexate Sodium [Methotrexate] 2.5 mg PO DAILY 10/21/17 10/21/17 History Pregabalin [Lyrica] 150 mg PO TID 10/21/17 10/21/17 History predniSONE 15 mg PO DAILY 10/21/17 10/21/17 History Allergies Allergy/AdvReac Type Severity Reaction Status Date / Time No Known Allergies Allergy Verified 10/21/17 10:24 Physical Examination - Vital Signs Vital Signs: Vital Signs Temp Pulse Pulse Resp BP BP Pulse Ox 10/21/17 15:45 98.4 F 146 H 31 H 148/77 95 10/21/17 15:02 130 H 18 159/96 95 10/21/17 14:49 130 H 18 151/94 95 10/21/17 14:32 99.8 F H 136 H 174/93 95 10/21/17 14:17 159/81 94 L 10/21/17 14:02 140 H 18 151/86 92 L 10/21/17 13:47 130 H 18 159/96 92 L 10/21/17 13:32 134 H 18 149/82 94 L 10/21/17 13:16 129 H 169/105 10/21/17 13:15 120 H 155/77 10/21/17 13:03 124 H 151/96 97 10/21/17 12:48 130 H 160/98 97 10/21/17 12:32 114 H 18 171/107 98 10/21/17 12:16 99.6 F 140 H 154/81 10/21/17 12:02 160 H 18 180/89 10/21/17 10:44 110 H 18 150/82 100 10/21/17 09:50 97.9 F 113 H 18 144/75 100 10/21/17 09:33 105 H 18 143/83 100 10/21/17 08:58 101 H 133/69 10/21/17 08:33 95.7 F L 94 18 134/67 96 10/21/17 07:43 94.5 F L 95 18 139/66 100 10/21/17 07:13 90 18 135/68 100 10/21/17 07:03 94.5 F L 102 H 18 136/69 100 10/21/17 06:38 94.2 F L 114 H 22 143/74 99 Intake and Output 10/21/17 10/21/17 10/21/17 06:59 14:59 22:59 Intake Total 18.346 Output Total 600 1400 Balance -581.654 -1400 Intake: Intake, IV Titration 18.346 Amount Propofol 1,000 mg In 18.346 Empty Bag 1 bag @ 10 MCG/ KG/MIN 4.59 mls/hr IV . [id number] [facility] Rx#:[id number] Output: Gastric Drainage 300 Urine 600 1100 Uretheral (Mendoza) 600 Other: Weight 76.657 kg - Constitutional General appearance: average body habitus - EENT EENT: mucous membranes moist - Respiratory Respiratory: lungs clear - Cardiovascular Cardiovascular: regular rate, normal S1, normal S2 Extremities: no peripheral edema bilaterally - Gastrointestinal Gastrointestinal: normoactive bowel sounds - Integumentary Integumentary: normal - Neurologic Cranial nerve examination: EOMI, face symmetric, tongue midline, intact gag reflex, normal palatal elevation Motor examination - right side: 1/5: biceps, triceps, wrist flexion, wrist extension, technical analyst, hip flexors, knee extensors, dorsiflexion, toe extension (EHL) , plantarflexion Motor examination - left side: 15: biceps, triceps, wrist flexion, wrist extension, technical analyst, hip flexors, knee extensors, dorsiflexion, toe extension (EHL) , plantarflexion Reflex and gait examination: intact Reflexes: 2+: ankle, bicep, knee, tricep Results - Laboratory Findings CBC and BMP: 10/21/17 14:45 10/21/17 14:45 Abnormal Lab Findings: Abnormal Labs 10/21/17 10/21/17 10/21/17 06:30 06:30 06:30 WBC RBC 4.11 L Neutrophils # 8.4 H APTT D-Dimer ABG pH ABG pO2 ABG HCO3 ABG Total CO2 ABG O2 Saturation Chloride 109 H Carbon Dioxide 16 L BUN 21 H Glucose 300 H POC Glucose (mg/dL) Calcium 8.3 L AST 127 H ALT 142 H Creatine Kinase CK-MB (CK-2) 2.7 H* Total Protein 6.0 L Ur Oxycodone Screen U Tricyclic Antidepress U Benzodiazepines Scrn 10/21/17 10/21/17 10/21/17 06:30 06:30 06:38 WBC RBC Neutrophils # APTT 19.6 L D-Dimer 4.34 H ABG pH ABG pO2 ABG HCO3 ABG Total CO2 ABG O2 Saturation Chloride Carbon Dioxide BUN Glucose POC Glucose (mg/dL) 294 H Calcium AST ALT Creatine Kinase CK-MB (CK-2) Total Protein Ur Oxycodone Screen Detected H U Tricyclic Antidepress Detected H U Benzodiazepines Scrn Detected H 10/21/17 10/21/17 10/21/17 07:01 14:17 14:42 WBC RBC Neutrophils # APTT D-Dimer ABG pH 7.19 L* ABG pO2 >400 H 73 L ABG HCO3 15 L 26 H ABG Total CO2 16 L 27 H ABG O2 Saturation 100.0 H Chloride Carbon Dioxide BUN Glucose POC Glucose (mg/dL) 130 H Calcium AST ALT Creatine Kinase CK-MB (CK-2) Total Protein Ur Oxycodone Screen U Tricyclic Antidepress U Benzodiazepines Scrn 10/21/17 10/21/17 10/21/17 14:45 14:45 15:45 WBC 17.2 H RBC 4.16 L Neutrophils # APTT D-Dimer ABG pH ABG pO2 ABG HCO3 ABG Total CO2 ABG O2 Saturation Chloride 110 H Carbon Dioxide BUN 26 H Glucose 128 H POC Glucose (mg/dL) 122 H Calcium AST 136 H ALT 159 H Creatine Kinase 251 H CK-MB (CK-2) Total Protein 6.2 L Ur Oxycodone Screen U Tricyclic Antidepress U Benzodiazepines Scrn Assessment and Plan (1) Cardiopulmonary arrest Current Visit: Yes Status: Acute Code(s): I46.9 - CARDIAC ARREST, CAUSE UNSPECIFIED SNOMED Code(s): 298772317 (2) Anoxic encephalopathy Current Visit: Yes Status: Acute Code(s): G93.1 - ANOXIC BRAIN DAMAGE, NOT ELSEWHERE CLASSIFIED SNOMED Code(s): 941695308 (3) Overdose Current Visit: Yes Status: Acute Code(s): T50.901A - POISONING BY UNSP DRUG/ MEDS/BIOL SUBST, ACCIDENTAL, INIT SNOMED Code(s): 91781446 (4) Major depression Current Visit: Yes Status: Acute Code(s): F32.9 - MAJOR DEPRESSIVE DISORDER , SINGLE EPISODE, UNSPECIFIED SNOMED Code(s): 080300662 (5) Suicide attempt Current Visit: Yes Status: Acute Code(s): T14.91XA - SUICIDE ATTEMPT, INITIAL ENCOUNTER SNOMED Code(s): 44714368 Plan: This patient is a 31-year-old right-handed white male who was found unresponsive at home by his father early this morning at around 4 AM. Patient was immediately given CPR as he was unresponsive and collapsed on the kitchen floor. CPR was initiated by the father initially and then by paramedics to arrive. They continued for at least 15 minutes before pulse was obtained. He was resuscitated and intubated on the scene and transferred to the emergency room by EMS to [facility]. He was seen in the ER by Dr. Manning. He underwent a computed tomography scan of the brain which revealed no acute intracranial abnormality. He was then transferred to the intensive care unit. Poison control was contacted as he had evidence of possible drug overdose. His urine drug screen was positive for tricyclic antidepressants, benzodiazepines, and opiates. He has a history of polysubstance abuse. Patient underwent a CTA of the chest which came back negative for pulmonary embolus. There was scattered infiltrates suggesting aspiration pneumonia. The patient is placed on Diprivan at this time in the intensive care unit. He is currently on 50 mics. His neurological examination in the intensive care unit reveals him to have corneal response intact as well as a gag reflex. He does withdraw to pain overall 4 extremities. Pupils are 4 mm and unreactive at this time. Deep tendon reflexes are 2+ with no Babinski response elicited. This patient has suffered acute cardiac arrest with severe anoxic encephalopathy secondary to down time of 15 minutes. His computed tomography scan of the brain failed to reveal any evidence of acute stroke or hemorrhage. We will obtain routine EEG for further assessment. He is currently on a Diprivan drip and is being followed by pulmonary medicine. His CTA of the chest was negative for pulmonary embolus. His prognosis at this time remains very guarded. Case was discussed at length with the patient's father at bedside in the intensive care unit. All of the father's questions were answered to his satisfaction. The father is aware of this patient's very guarded prognosis at this time. We will continue close neurological follow-up with this patient in the intensive care unit. Time with Patient: Greater than 30
[2017-10-21] MEDS: IPRATROPIUM-ALBUTEROL 3 ML NEB INHALATION SCH ×2 (16:28→20:24)
[2017-10-21] MEDS ORDERED: WATER IV ONE ×4 (16:45→23:00)
[2017-10-21] MEDS ORDERED: DEXTROSE 5% IV ONE ×4 (16:45→23:00)
[2017-10-21] MEDS ORDERED: ACETYLCYSTEINE IV ONE ×4 (16:45→23:00)
--- NOTE | 2017-10-21 16:59 | P.HPIM ---
History of Present Illness H&P Date: 10/21/17 (delayed charting patient seen at 1430) Chief Complaint: unresponsive Patient is a 31-year-old male with a past medical history of polysubstance abuse, narcolepsy, and ADHD who presented to the hospital via EMS after being found unresponsive by his father. His father woke up about 4 AM and saw him taking some respirations and then stopped breathing. He immediately started CPR along with the police. EMS then arrived and he was administered one of IV and Narcan. He was intubated in the field and brought to the hospital. It appears that he likely had about 15-20 minutes of a down time per the father. On arrival here he was unresponsive and maintain on the vent. He underwent a CT of the brain which showed no acute process. He underwent an EKG which showed possible lateral ischemia but no acute ST-T wave changes. He underwent a CTA of the chest which showed scattered infiltrate and a chest x-ray consistent with pneumonia. He was started on IV Levaquin and IV fluids. His maintain off sedation and was having a gag and spontaneous movements. Orders were written for the ICU. He was seen by Dr. Washington for pulmonary critical care. Around noon today he started becoming tachycardic and coughing. He was started on propofol but remained tachycardic. Nurses noted increasing rigidity in his lower extremities. Patient seen and examined at bedside. He is currently unresponsive and sedated on vent. Nursing present. They state he started having myoclonic jerking around 12:30 today and that he became tachycardic was started on propofol. There is also noted increasing rigidity of his lower extremities. Father came to bedside at the end of my exam along with a brother. We discussed that he has anoxic brain injury. It'll take us some days to the exact extent of his injury. We usually can give a better prognosis with and 48- 72 hours. I did inform them that urology would be following as well. Inform them of CT scan findings, but that a normal head CT does not indicate that he has had no brain injury. They're asking that a brain wave activity test. I stated that he will likely have an EEG done but again this may show some abnormality but will not tell us his extent of recovery. All questions answered best of my ability. I again reiterated his poor overall prognosis. Record review of patient's one other mental health admission at this hospital was performed. He was admitted in November 2014. At that point in time he states he quit using drugs for years ago and used to be heavy drinker but stopped that as well. Review of Systems ROS unobtainable: due to endotracheal tube Past Medical History Past Medical History: Osteoarthritis (OA) Additional Past Medical History / Comment(s): Narcolepsy, ADHD, patient was a preemie and underwent cardiac surgery as an . Patient ductus arteriosus. History of Any Multi-Drug Resistant Organisms: None Reported Additional Past Surgical History / Comment(s): Cardiac surgery as an infant, bilateral meniscus repair open, nasal reconstruction Past Psychological History: ADD/ADHD Smoking Status: Current every day smoker Past Alcohol Use History: Daily Past Drug Use History: None Reported - Past Family History Father Family Medical History: Hypertension Additional Family Medical History / Comment(s): Father problems with addiction, hypertension, autoimmune disease unsure type, and psoratic arthritis Mother Family Medical History: No Reported History Additional Family Medical History / Comment(s): Mother has history of depression, possible bipolar disorder and anxiety. Patient's grandfather had bipolar disorder. Patient has 4 brothers that are healthy. He has no sisters. Patient does not have any children. Medications and Allergies Home Medications Medication Instructions Recorded Confirmed Type [id number] 1 tab PO Q4HR PRN 10/21/17 10/21/17 History [Excedrin] Folic Acid 1 mg PO DAILY 10/21/17 10/21/17 History Gabapentin [Neurontin] 300 mg PO AC-BID 10/21/17 10/21/17 History Guaifen/Phenyleph/Acetaminophn 2 tab PO Q4H PRN 10/21/17 10/21/17 History [Tylenol Sinus Severe Caplet] Ibuprofen [Motrin Ib] 200 - 400 mg PO Q6H PRN 10/21/17 10/21/17 History Methotrexate Sodium [Methotrexate] 2.5 mg PO DAILY 10/21/17 10/21/17 History Pregabalin [Lyrica] 150 mg PO TID 10/21/17 10/21/17 History predniSONE 5 mg PO DAILY 10/21/17 10/21/17 History Allergies Allergy/AdvReac Type Severity Reaction Status Date / Time No Known Allergies Allergy Verified 10/21/17 10:24 Physical Exam Osteopathic Statement: *. No significant issues noted on an osteopathic structural exam other than those noted in the History and Physical/Consult. Vitals: Vital Signs Temp Pulse Pulse Resp BP BP Pulse Ox 10/21/17 16:29 126 H 10/21/17 16:15 136 H 18 157/81 95 10/21/17 16:00 136 H 20 150/84 94 L 10/21/17 15:45 98.4 F 148 H 146 H 46 H 148/77 93 L 10/21/17 15:38 148 H 25 H 135/97 10/21/17 15:32 132 H 162/98 10/21/17 15:17 99.8 F H 138 H 18 154/94 95 10/21/17 15:02 130 H 18 159/96 95 10/21/17 14:49 130 H 18 151/94 95 10/21/17 14:32 99.8 F H 136 H 174/93 95 10/21/17 14:17 159/81 94 L 10/21/17 14:02 140 H 18 151/86 92 L 10/21/17 13:47 130 H 18 159/96 92 L 10/21/17 13:32 134 H 18 149/82 94 L 10/21/17 13:16 129 H 169/105 10/21/17 13:15 120 H 155/77 10/21/17 13:03 124 H 151/96 97 10/21/17 12:48 130 H 160/98 97 10/21/17 12:32 114 H 18 171/107 98 10/21/17 12:16 99.6 F 140 H 154/81 10/21/17 12:02 160 H 18 180/89 10/21/17 10:44 110 H 18 150/82 100 10/21/17 09:50 97.9 F 113 H 18 144/75 100 10/21/17 09:33 105 H 18 143/83 100 10/21/17 08:58 101 H 133/69 10/21/17 08:33 95.7 F L 94 18 134/67 96 10/21/17 07:43 94.5 F L 95 18 139/66 100 10/21/17 07:13 90 18 135/68 100 10/21/17 07:03 94.5 F L 102 H 18 136/69 100 10/21/17 06:38 94.2 F L 114 H 22 143/74 99 Intake and Output 10/21/17 10/21/17 10/21/17 06:59 14:59 22:59 Intake Total 18.346 242.987 Output Total 600 1475 Balance -581.654 -1232.013 Intake: Intake, IV Titration 18.346 242.987 Amount Piperacillin-Tazobactam 3 50 .375 gm In Dextrose/Water 1 50ml.bag @ 12.5 mls/hr IVPB Q8HR [facility] Rx#: [id number] Propofol 1,000 mg In 18.346 42.987 Empty Bag 1 bag @ 10 MCG/ KG/MIN 4.59 mls/hr IV . [id number] YE Rx#:[id number] Sodium Chloride 0.9% 1, 150 000 ml @ 150 mls/hr IV . Q6H40M [facility] Rx#:[id number] Output: Gastric Drainage 300 Urine 600 1175 Uretheral (Mendoza) 600 Other: Weight 76.657 kg General: Ill appearing, mild distress, appears at stated age, normal weight Derm: no unusual rashes/lesions Multiple small areas of bruising, warm, diaphoretic Head: atraumatic, normocephalic, symmetric Eyes: Pupils pinpoint, anicteric sclera, no lid lesion ENT: Nose and ears atraumatic, no thrush, no pharyngeal erythema Neck: No thyromegaly, no cervical lymphadenopathy, trachea midline, supple Mouth: no lip lesion, mucus membranes dry Cardiovascular: S1S2 reg, no murmur, positive posterior tibial pulse bilateral, mild edema, capillary refill less than 2 seconds Lungs: CTA bilateral, no rhonchi, no rales , no accessory muscle use, on vent Abdominal: soft, nontender to palpation, no guarding, no appreciable organomegaly, hypoactive bowel sounds, NGT with dark black drainage. Ext: no gross muscle atrophy, Increased ridigity in b/l LE, no contractures, Neuro: + cough, + gag, Pupils pinpoint, + clonus, grimacing to pain in all 4 extremities, increased rigidity in bilateral lower extremities, myoclonic jerking, appears to have some posturing Psych: On vent, currently sedated Results CBC & Chem 7: 10/21/17 14:45 10/21/17 14:45 Labs: Abnormal Lab Results - Last 24 Hours (Table) 10/21/17 10/21/17 10/21/17 Range/Units 06:30 06:30 06:30 WBC (3.8-10.6) k/uL RBC 4.11 L (4.30-5.90) m/uL Neutrophils # 8.4 H (1.3-7.7) k/uL APTT (22.0-30.0) sec D-Dimer (<0.60) mg/L FEU ABG pH (7.35-7.45) ABG pO2 (83-108) mmHg ABG HCO3 (21-25) mmol/L ABG Total CO2 (19-24) mmol/L ABG O2 Saturation (94-97) % Chloride 109 H (98-107) mmol/L Carbon Dioxide 16 L (22-30) mmol/L BUN 21 H (9-20) mg/dL Glucose 300 H (74-99) mg/dL POC Glucose (mg/dL) (75-99) mg/dL Calcium 8.3 L (8.4-10.2) mg/dL AST 127 H (17-59) U/L ALT 142 H (21-72) U/L Creatine Kinase (55-170) U/L CK-MB (CK-2) 2.7 H* (0.0-2.4) ng/mL Total Protein 6.0 L (6.3-8.2) g/dL Ur Oxycodone Screen (NotDetected) U Tricyclic Antidepress (NotDetected) U Benzodiazepines Scrn (NotDetected) 10/21/17 10/21/17 10/21/17 Range/Units 06:30 06:30 06:38 WBC (3.8-10.6) k/uL RBC (4.30-5.90) m/uL Neutrophils # (1.3-7.7) k/uL APTT 19.6 L (22.0-30.0) sec D-Dimer 4.34 H (<0.60) mg/L FEU ABG pH (7.35-7.45) ABG pO2 (83-108) mmHg ABG HCO3 (21-25) mmol/L ABG Total CO2 (19-24) mmol/L ABG O2 Saturation (94-97) % Chloride (98-107) mmol/L Carbon Dioxide (22-30) mmol/L BUN (9-20) mg/dL Glucose (74-99) mg/dL POC Glucose (mg/dL) 294 H (75-99) mg/dL Calcium (8.4-10.2) mg/dL AST (17-59) U/L ALT (21-72) U/L Creatine Kinase (55-170) U/L CK-MB (CK-2) (0.0-2.4) ng/mL Total Protein (6.3-8.2) g/dL Ur Oxycodone Screen Detected H (NotDetected) U Tricyclic Antidepress Detected H (NotDetected) U Benzodiazepines Scrn Detected H (NotDetected) 10/21/17 10/21/17 10/21/17 Range/Units 07:01 14:17 14:42 WBC (3.8-10.6) k/uL RBC (4.30-5.90) m/uL Neutrophils # (1.3-7.7) k/uL APTT (22.0-30.0) sec D-Dimer (<0.60) mg/L FEU ABG pH 7.19 L* (7.35-7.45) ABG pO2 >400 H 73 L (83-108) mmHg ABG HCO3 15 L 26 H (21-25) mmol/L ABG Total CO2 16 L 27 H (19-24) mmol/L ABG O2 Saturation 100.0 H (94-97) % Chloride (98-107) mmol/L Carbon Dioxide (22-30) mmol/L BUN (9-20) mg/dL Glucose (74-99) mg/dL POC Glucose (mg/dL) 130 H (75-99) mg/dL Calcium (8.4-10.2) mg/dL AST (17-59) U/L ALT (21-72) U/L Creatine Kinase (55-170) U/L CK-MB (CK-2) (0.0-2.4) ng/mL Total Protein (6.3-8.2) g/dL Ur Oxycodone Screen (NotDetected) U Tricyclic Antidepress (NotDetected) U Benzodiazepines Scrn (NotDetected) 10/21/17 10/21/17 10/21/17 Range/Units 14:45 14:45 15:45 WBC 17.2 H (3.8-10.6) k/uL RBC 4.16 L (4.30-5.90) m/uL Neutrophils # (1.3-7.7) k/uL APTT (22.0-30.0) sec D-Dimer (<0.60) mg/L FEU ABG pH (7.35-7.45) ABG pO2 (83-108) mmHg ABG HCO3 (21-25) mmol/L ABG Total CO2 (19-24) mmol/L ABG O2 Saturation (94-97) % Chloride 110 H (98-107) mmol/L Carbon Dioxide (22-30) mmol/L BUN 26 H (9-20) mg/dL Glucose 128 H (74-99) mg/dL POC Glucose (mg/dL) 122 H (75-99) mg/dL Calcium (8.4-10.2) mg/dL AST 136 H (17-59) U/L ALT 159 H (21-72) U/L Creatine Kinase 251 H (55-170) U/L CK-MB (CK-2) (0.0-2.4) ng/mL Total Protein 6.2 L (6.3-8.2) g/dL Ur Oxycodone Screen (NotDetected) U Tricyclic Antidepress (NotDetected) U Benzodiazepines Scrn (NotDetected) Chest x-ray: report reviewed, image reviewed CT Scan - head: report reviewed Thrombosis Risk Factor Assmnt - DVT/VTE Prophylaxis DVT/VTE Prophylaxis: Pharmacologic Prophylaxis ordered Assessment and Plan Assessment: Overdose -Intentional versus unintentional unknown -Discussed with poison control recommended discontinuation of Tylenol, repeat acetaminophen level in the morning, and 24-hour administration of Acetadote. -Check repeat CPK with TCA on urine drug screen Aborted sudden cardiac -EKG without significant changes -Appears to be respiratory in origin -Monitor telemetry -If any abnormality consider cardiology consultation with this of late bleed thought to be secondary to a pulmonary etiology as patient was witnessed to stop breathing by his father Pneumonia, likely aspiration -Continue with Levaquin, add Zosyn -Pulmonary hygiene -Critical care recommendations -Sputum culture -Bronchodilators Anoxic encephalopathy -Poor overall prognosis discussed with family -Head CT without any acute changes -We'll need to 72 hours to better determine return of neurologic status -Neurology recommendations Tobacco one possible alcohol use -Monitor for signs of alcohol withdrawal Transaminitis -Multiple etiologies possible -Case was discussed with poison control who recommands N-acetylcysteine dosing and repeat Tylenol level Chronic: Osteoarthritis Narcolepsy ADHD History of cardiac surgery as a child On my exam patient was increasingly tachycardic, diaphoretic, and with increased muscle tone. We checked a repeat CPK, ABG, CMP, lactic aicd and CBC. IV fluids were increased. Rectal temperature probe was added. Zosyn added. All stat blood work results reviewed. Also ordered a gastrocult on his dark output through his NG tube which was negative. DVT prophylaxis: Lovenox Discussed with: RN, ED physicians, [employer]ER, Family Anticipated discharge: undetermined Anticipated discharge place:undetermined A total of 75 minutes was spent on the care of this complex patient more than 50 % of the time was spent in counseling and care coordination.
[2017-10-21] MEDS ORDERED: ACETYLCYSTEINE IV 3,800 MG in DEXTROSE 5% IN WATER 500 ML IV ONE ×2 (18:00)
[2017-10-21] MEDS: MAGNESIUM SULFATE-D5W PMX 1 GM in DEXTROSE/WATER 1 100ML.BAG IVPB SCH ×2 (18:51→19:50)
[2017-10-21 20:30] LABS: Appearance,Urine Clear (Clear); Bilirubin,Urine Negative (Negative); Blood,Urine Negative (Negative); Color,Urine Light Yellow; Glucose,Urine (UA) Negative (Negative); Ketones,Urine 1+ (Negative); Leukocyte Esterase,Urine Negative (Negative); PH, Urine 5.5 (5.0-8.0); Protein,Urine Negative (Negative); Specific Gravity,Urine 1.016 (1.001-1.035); Urobilinogen,Urine <2.0 mg/dL (<2.0)
[2017-10-21] MEDS: DOCUSATE 100 MG CAP PO SCH (22:42)
[2017-10-21] MEDS: LABETALOL 5 MG/ML VIAL MDV IVP PRN (23:17)
[2017-10-22] MEDS: IPRATROPIUM-ALBUTEROL 3 ML NEB INHALATION SCH ×7 (00:21→19:56)
[2017-10-22] MEDS: PROPOFOL 1,000 MG in EMPTY BAG 1 BAG IV SCH ×5 (00:47→23:17)
[2017-10-22 01:37] LABS: Glucose,Whole Blood 153 mg/dL (75-99)
[2017-10-22 04:31] LABS: ABG Base Excess 0.8 mmol/L; ABG HCO3 25 mmol/L (21-25); ABG Oxygen Saturation 98.4 % (94-97); ABG PCO2 35 mmHg (35-45); ABG PH 7.45 (7.35-7.45); ABG PO2 104 mmHg (83-108); ABG TCO2 26 mmol/L (19-24)
[2017-10-22 04:39] LABS: ALT 115 U/L (21-72); AST 72 U/L (17-59); Acetaminophen <10.0 ug/mL; Albumin 3.2 g/dL (3.5-5.0); Alkaline Phosphatase 47 U/L (38-126); Basophils % (A) 0 %; Blood Urea Nitrogen 20 mg/dL (9-20); Calcium 8.7 mg/dL (8.4-10.2); Chloride 107 mmol/L (98-107); Eosinophils # (A) 0.1 k/uL (0-0.7); Eosinophils % (A) 1 %; Glucose 132 mg/dL (74-99); HCT 37.1 % (39.0-53.0); HGB 12.6 gm/dL (13.0-17.5); Lipase 38 U/L (23-300); Lymphocytes # (A) 1.2 k/uL (1.0-4.8); Lymphocytes % (A) 11 %; MCH 32.6 pg (25.0-35.0); Mean Platelet Volume 7.6; Monocytes # (A) 0.7 k/uL (0-1.0); Monocytes % (A) 7 %; Neutrophils # (A) 8.8 k/uL (1.3-7.7); Neutrophils % (A) 80 %; Phosphorus 3.6 mg/dL (2.5-4.5); Platelet Count 214 k/uL (150-450); RBC 3.86 m/uL (4.30-5.90); RDW 14.4 % (11.5-15.5); Sodium 140 mmol/L (137-145); Total Bilirubin 0.3 mg/dL (0.2-1.3); Total Protein 5.3 g/dL (6.3-8.2)
[2017-10-22 04:40] LABS: INR 1.2 (<1.2); Prothrombin Time 11.3 sec (9.0-12.0)
[2017-10-22 04:57] LABS: Potassium 3.6 mmol/L (3.5-5.1)
[2017-10-22 05:05] LABS: Anion Gap 10 mmol/L; Carbon Dioxide 23 mmol/L (22-30)
[2017-10-22] MEDS ORDERED: Potassium Replacement Protocol 1 EACH MISC MISCELLANE PRN (05:58)
[2017-10-22] MEDS ORDERED: POTASSIUM BICARBONATE/CIT AC 20 MEQ TABLET.EFF NG-TUBE SCH (06:00)
[2017-10-22 06:19] LABS: Glucose,Whole Blood 142 mg/dL (75-99)
--- NOTE | 2017-10-22 07:14 | XR ---
EXAMINATION TYPE: XR chest 1V portable DATE OF EXAM: 10/22/2017 COMPARISON: NONE INDICATION: Difficulty breathing, intubated TECHNIQUE: Single frontal view of the chest is obtained. FINDINGS: The heart size is normal. The pulmonary vasculature is normal. There is improving right upper lobe infiltrate. Mild infiltrate is at the left base Endotracheal tube position is stable. Nasogastric tube with the tip near the level of the gastroesoph ageal junction is stable in position. IMPRESSION: 1. Improving right upper lobe infiltrate. 2. Stable endotracheal tube. 3. Nasogastric tube tip near the level of the gastroesophageal junction unchanged from prior exam. Re commend confirming this is the desired position of this atypically positioned nasogastric tube. Typic ally this is more advanced into the abdomen.
[2017-10-22] MEDS: HEPARIN SODIUM,PORCINE 5,000 UNIT/ML 1 ML VIAL SQ SCH ×3 (08:51→23:16)
[2017-10-22] MEDS: CHLORHEXIDINE GLUCONATE 15 ML CUP MUCOUS MEM SCH ×2 (08:51→20:53)
[2017-10-22] MEDS: PANTOPRAZOLE 40 MG/10 ML VIAL IV SCH (08:51)
[2017-10-22] MEDS: SODIUM CHLORIDE 0.9% 1,000 ML IV SCH ×4 (08:52→23:30)
[2017-10-22] MEDS: DOCUSATE 100 MG CAP PO SCH ×2 (08:53→20:53)
[2017-10-22] MEDS ORDERED: LEVOFLOXACIN 750MG-D5W PMX 750 MG in DEXTROSE/WATER 1 150ML.BAG IVPB SCH (09:00)
[2017-10-22] MEDS: PIPERACILLIN-TAZOBACTAM 3.375 GM in DEXTROSE/WATER 1 50ML.BAG IVPB SCH ×3 (09:10→23:16)
--- NOTE | 2017-10-22 10:38 | P.PN ---
Subjective Progress Note Date: 10/22/17 Principal diagnosis: Acute hypoxic respiratory failure secondary to drug overdose. Consult dated 10/21/2017 31-year-old male who we saw in the emergency department for respiratory failure secondary to drug overdose. He has an extensive history of drug abuse. The patient apparently was found by the father unresponsive. Apparently was breathing poorly breathing or may be even not breathing for at least 2 minutes prior to the police arriving. CPR was started immediately by paramedics. They continue for another 10 or 15 minutes at which time the patient had return of pulses. The patient was intubated at the scene and given Narcan as well as 1 mg her 1 amp of epinephrine. The patient's is currently in the emergency room on the ventilator. The patient's drug screen was at least positive for Tri- Cyclic antidepressants and opiates. His past medical history is positive osteoarthritis. He also apparently suffers from ADHD narcolepsy and had a ductus arteriosus. The patient has since had some additional surgeries as listed in the ER candy. He is a smoker. He apparently was recently in senior living for cooking up methamphetamines. He apparently also has abused alcohol. The rest of the history is not well delineated. Progress note dated 10/22/2017 The patient is seen again today in follow-up in the intensive care unit. He remains intubated on the mechanical ventilator. Current settings assist control of 18, tidal volume 500, FiO2 40% and a PEEP of 5. Morning blood gases reveal a pO2 of 104, pCO2 35, pH 7.45. Chest x-ray reveals improving right upper lobe infiltrate. He remains on Zosyn and Levaquin. He has a 0.9 normal saline at 150 MLS per hour. Propofol at 50 mcg/kg/m. He is also on acetylcysteine currently at 62.5 mL per hour. Acetaminophen level less than 10.0. White count 11.0. Hemoglobin 12.6. Elected lites within normal range. Creatinine 0.70. AST 75, ALT 115. He was given a daily interruption of sedation and so far is not waking up. Not following any commands. Objective - Vital Signs Vital signs: Vital Signs Temp 97.7 F 10/22/17 08:00 Pulse 84 10/22/17 10:00 Resp 19 10/22/17 10:00 BP 152/92 10/22/17 10:00 Pulse Ox 100 10/22/17 10:00 Intake & Output 10/21/17 10/22/17 10/22/17 18:59 06:59 18:59 Intake Total 5484.564 8273.5 1006.783 Output Total 2350 1485 230 Balance -6162.083 2657.5 776.783 Weight 76.657 kg 90.7 kg Intake: IV 2687.5 850.0 Acetylcysteine IV 3,800 500 mg In Dextrose 5% in Water 500 ml @ 125 mls/hr IV ONCE ONE Rx#: [id number] Acetylcysteine IV 7,700 437.5 250.0 mg In Dextrose 5% in Water 1,000 ml @ 62.5 mls /hr IV ONCE ONE Rx#: [id number] Magnesium Sulfate-D5w Pmx 100 1 gm In Dextrose/Water 1 100ml.bag @ 100 mls/hr IVPB Q1H [facility] Rx#: [id number] Sodium Chloride 0.9% 1, 1650 600 000 ml @ 150 mls/hr IV . Q6H40M [facility] Rx#:[id number] Intake, IV Titration 1011.333 156.783 Amount Acetylcysteine IV 11,500 200 mg In Dextrose 5% in Water 200 ml @ 200 mls/hr IV ONCE ONE Rx#: [id number] Magnesium Sulfate-D5w Pmx 100 1 gm In Dextrose/Water 1 100ml.bag @ 100 mls/hr IVPB Q1H [facility] Rx#: [id number] Piperacillin-Tazobactam 3 50 50 .375 gm In Dextrose/Water 1 50ml.bag @ 12.5 mls/hr IVPB Q8HR YE Rx#: [id number] Propofol 1,000 mg In 61.333 Empty Bag 1 bag @ 10 MCG/ KG/MIN 4.59 mls/hr IV . Q33J40S YE Rx#:[id number] Propofol 1,000 mg In 106.783 Empty Bag 1 bag @ Titrate IV .Q0M [facility] Rx#: [id number] Sodium Chloride 0.9% 1, 600 000 ml @ 150 mls/hr IV . Q6H40M YE Rx#:[id number] Output: Gastric Drainage 300 Urine 2050 1485 230 Uretheral (Mendoza) 600 Other: Voiding Method Indwelling Catheter Indwelling Catheter Indwelling Catheter - Exam No acute distress, The patient is sedated, and has an orally placed endotracheal tube and NG tube HEENT examination is grossly unremarkable. Mucous membranes are moist. No oral lesions. Pupillary response is intact. Neck supple. Full range of motion. No adenopathy thyromegaly or neck vein distention. Cardiovascular examination reveals regular rhythm rate. S1-S2 normal. No S3 or S4. No discernible murmur noted. Lungs reveal diffuse rhonchi. Breath sounds are equal. No wheezes. No crackles. Abdomen soft with bowel sounds. No masses or tenderness. Extremities are intact. No cyanosis clubbing or edema. Skin is without rash or lesion. Neurologic examination could not be assessed. - Labs CBC & Chem 7: 10/22/17 04:05 10/22/17 04:05 Labs: Abnormal Lab Results - Last 24 Hours (Table) 10/21/17 10/21/17 10/21/17 Range/Units 14:17 14:42 14:45 WBC 17.2 H (3.8-10.6) k/uL RBC 4.16 L (4.30-5.90) m/uL Hgb (13.0-17.5) gm/dL Hct (39.0-53.0) % Neutrophils # (1.3-7.7) k/uL INR (<1.2) ABG pO2 73 L (83-108) mmHg ABG HCO3 26 H (21-25) mmol/L ABG Total CO2 27 H (19-24) mmol/L ABG O2 Saturation (94-97) % Chloride (98-107) mmol/L BUN (9-20) mg/dL Glucose (74-99) mg/dL POC Glucose (mg/dL) 130 H (75-99) mg/dL AST (17-59) U/L ALT (21-72) U/L Creatine Kinase (55-170) U/L Total Protein (6.3-8.2) g/dL Albumin (3.5-5.0) g/dL Urine Ketones (Negative) 10/21/17 10/21/17 10/21/17 Range/Units 14:45 15:45 20:14 WBC (3.8-10.6) k/uL RBC (4.30-5.90) m/uL Hgb (13.0-17.5) gm/dL Hct (39.0-53.0) % Neutrophils # (1.3-7.7) k/uL INR (<1.2) ABG pO2 (83-108) mmHg ABG HCO3 (21-25) mmol/L ABG Total CO2 (19-24) mmol/L ABG O2 Saturation (94-97) % Chloride 110 H (98-107) mmol/L BUN 26 H (9-20) mg/dL Glucose 128 H (74-99) mg/dL POC Glucose (mg/dL) 122 H (75-99) mg/dL AST 136 H (17-59) U/L ALT 159 H (21-72) U/L Creatine Kinase 251 H (55-170) U/L Total Protein 6.2 L (6.3-8.2) g/dL Albumin (3.5-5.0) g/dL Urine Ketones 1+ H (Negative) 10/22/17 10/22/17 10/22/17 Range/Units 01:34 04:05 04:05 WBC 11.0 H (3.8-10.6) k/uL RBC 3.86 L (4.30-5.90) m/uL Hgb 12.6 L (13.0-17.5) gm/dL Hct 37.1 L (39.0-53.0) % Neutrophils # 8.8 H (1.3-7.7) k/uL INR (<1.2) ABG pO2 (83-108) mmHg ABG HCO3 (21-25) mmol/L ABG Total CO2 (19-24) mmol/L ABG O2 Saturation (94-97) % Chloride (98-107) mmol/L BUN (9-20) mg/dL Glucose 132 H (74-99) mg/dL POC Glucose (mg/dL) 153 H (75-99) mg/dL AST 72 H (17-59) U/L ALT 115 H (21-72) U/L Creatine Kinase (55-170) U/L Total Protein 5.3 L (6.3-8.2) g/dL Albumin 3.2 L (3.5-5.0) g/dL Urine Ketones (Negative) 10/22/17 10/22/17 10/22/17 Range/Units 04:05 04:28 06:17 WBC (3.8-10.6) k/uL RBC (4.30-5.90) m/uL Hgb (13.0-17.5) gm/dL Hct (39.0-53.0) % Neutrophils # (1.3-7.7) k/uL INR 1.2 H (<1.2) ABG pO2 (83-108) mmHg ABG HCO3 (21-25) mmol/L ABG Total CO2 26 H (19-24) mmol/L ABG O2 Saturation 98.4 H (94-97) % Chloride (98-107) mmol/L BUN (9-20) mg/dL Glucose (74-99) mg/dL POC Glucose (mg/dL) 142 H (75-99) mg/dL AST (17-59) U/L ALT (21-72) U/L Creatine Kinase (55-170) U/L Total Protein (6.3-8.2) g/dL Albumin (3.5-5.0) g/dL Urine Ketones (Negative) Microbiology - Last 24 Hours (Table) 10/21/17 13:16 Gram Stain - Preliminary Sputum Sputum Culture - Preliminary 10/21/17 20:14 Urine Culture - Preliminary Urine,Catheterized Assessment and Plan Assessment: Assessment: Acute hypoxic respiratory failure acquiring intubation and mechanical ventilation secondary to drug overdose, with an elevated alcohol level and a drug screen that was positive for TCAs, benzodiazepines, and opiates. History of polysubstance abuse Cardiopulmonary arrest with cardiopulmonary resuscitation and return of spontaneous circulation History of osteoarthritis History of narcolepsy History of ADHD History of ductus arteriosus History of ongoing tobacco use and abuse as well as alcohol use and abuse Previous use of methamphetamines Plan: The patient was seen and evaluated by Dr. Washington. His chest x-ray, ABGs and labs were all reviewed. We'll continue with his current medications for now. Poison control has been contacted. We'll initiate tube feedings. Continue with daily interruption of sedation. Continue with daily chest x-ray, labs and ABGs. We will continue to follow and make further recommendations based on his clinical status. Critical care time 38 minutes. I, the cosigning physician, performed a history & physical examination of the patient. Lungs sounds are few scattered rhonchi, crackles in the right lung base. Maintaining good O2 saturations in the 90s on on 40% FiO2 with a PEEP of 5. I discussed the assessment and plan of care with my nurse practitioner, Shavonne De Jesus. I attest to the above note as dictated by her. Time with Patient: Greater than 30
[2017-10-22] MEDS: LEVOFLOXACIN 750MG-D5W PMX 750 MG in DEXTROSE/WATER 1 150ML.BAG IVPB SCH (13:08)
[2017-10-22] MEDS: NICOTINE 21MG/24HR PATCH TRANSDERM SCH (13:08)
[2017-10-22 13:19] LABS: Glucose,Whole Blood 151 mg/dL (75-99)
--- NOTE | 2017-10-22 14:33 | P.PN ---
Subjective Progress Note Date: 10/22/17 (delayed charting seen at 0900) Principal diagnosis: unresponsive Patient is a 31-year-old male with a past medical history of polysubstance abuse, narcolepsy, and ADHD who presented to the hospital via EMS after being found unresponsive by his father. His father woke up about 4 AM and saw him taking some respirations and then stopped breathing. He immediately started CPR along with the police. EMS then arrived and he was administered one of IV and Narcan. He was intubated in the field and brought to the hospital. It appears that he likely had about 15-20 minutes of a down time per the father. On arrival here he was unresponsive and maintain on the vent. He underwent a CT of the brain which showed no acute process. He underwent an EKG which showed possible lateral ischemia but no acute ST-T wave changes. He underwent a CTA of the chest which showed scattered infiltrate and a chest x-ray consistent with pneumonia. He was started on IV Levaquin and IV fluids. His maintain off sedation and was having a gag and spontaneous movements. Orders were written for the ICU. He was seen by Dr. Washington for pulmonary critical care. Around noon on 10/21 he started becoming tachycardic and coughing. He was started on propofol but remained tachycardic. Nurses noted increasing rigidity in his lower extremities. He was seen by neurology who felt his chances of neurologic recovery were overall poor. His vitals remained stable overnight on 11/17. Patient seen and examined at bedside. He remains sedated on vent. Mother and stepfather Present at bedside. Updated on prognosis, need for monitoring, and use of propofol. Per nursing no acute events overnight. Objective - Vital Signs Vital signs: Vital Signs Temp 98.5 F 10/22/17 12:00 Pulse 84 10/22/17 14:00 Resp 18 10/22/17 14:00 BP 155/91 10/22/17 14:00 Pulse Ox 99 10/22/17 14:00 Intake & Output 10/21/17 10/22/17 10/22/17 18:59 06:59 18:59 Intake Total 2512.572 6168.5 1824.283 Output Total 2350 1485 465 Balance -5162.904 2999.5 1359.283 Weight 76.657 kg 90.7 kg 90.7 kg Intake: IV 2687.5 1487.5 Acetylcysteine IV 3,800 500 mg In Dextrose 5% in Water 500 ml @ 125 mls/hr IV ONCE ONE Rx#: [id number] Acetylcysteine IV 7,700 437.5 437.5 mg In Dextrose 5% in Water 1,000 ml @ 62.5 mls /hr IV ONCE ONE Rx#: [id number] Magnesium Sulfate-D5w Pmx 100 1 gm In Dextrose/Water 1 100ml.bag @ 100 mls/hr IVPB Q1H [facility] Rx#: [id number] Sodium Chloride 0.9% 1, 1650 1050 000 ml @ 150 mls/hr IV . Q6H40M [facility] Rx#:[id number] Intake, IV Titration 1011.333 306.783 Amount Acetylcysteine IV 11,500 200 mg In Dextrose 5% in Water 200 ml @ 200 mls/hr IV ONCE ONE Rx#: [id number] Levofloxacin 750Mg-D5w 150 Pmx 750 mg In Dextrose/ Water 1 150ml.bag @ 100 mls/hr IVPB Q24H [facility] Rx#: [id number] Magnesium Sulfate-D5w Pmx 100 1 gm In Dextrose/Water 1 100ml.bag @ 100 mls/hr IVPB Q1H [facility] Rx#: [id number] Piperacillin-Tazobactam 3 50 50 .375 gm In Dextrose/Water 1 50ml.bag @ 12.5 mls/hr IVPB Q8HR [facility] Rx#: [id number] Propofol 1,000 mg In 61.333 Empty Bag 1 bag @ 10 MCG/ KG/MIN 4.59 mls/hr IV . [id number] [facility] Rx#:[id number] Propofol 1,000 mg In 106.783 Empty Bag 1 bag @ Titrate IV .Q0M [facility] Rx#: [id number] Sodium Chloride 0.9% 1, 600 000 ml @ 150 mls/hr IV . Q6H40M [facility] Rx#:[id number] Tube Feeding 30 Output: Gastric Drainage 300 Urine 2050 1485 465 Uretheral (Mendoza) 600 Other: Voiding Method Indwelling Catheter Indwelling Catheter Indwelling Catheter - Exam General: non toxic, no distress, appears at stated age, sedated on vent Derm: warm, dry Head: atraumatic, normocephalic, symmetric Eyes: Pupils equal and round, right pupil reactive to light, left pupil sluggishly reactive to light, anicteric sclera Mouth: no lip lesion, ET tube in place Cardiovascular: S1S2 reg, no murmur, positive posterior tibial pulse bilateral, Lungs: CTA bilateral, no rhonchi, no rales , no accessory muscle use, on vent Abdominal: soft, nontender to palpation, no guarding, no appreciable organomegaly, NG tube in place with dark drainage Ext: no gross muscle atrophy, no edema, no contractures Neuro: Currently on propofol. No withdrawal to pain in all 4 extremities. Increased rigidity of bilateral lower extremities. No clonus. Psych: Sedated on vent - Labs CBC & Chem 7: 10/22/17 04:05 10/22/17 04:05 Labs: Abnormal Lab Results - Last 24 Hours (Table) 10/21/17 10/21/17 10/21/17 Range/Units 14:42 14:45 14:45 WBC 17.2 H (3.8-10.6) k/uL RBC 4.16 L (4.30-5.90) m/uL Hgb (13.0-17.5) gm/dL Hct (39.0-53.0) % Neutrophils # (1.3-7.7) k/uL INR (<1.2) ABG pO2 73 L (83-108) mmHg ABG HCO3 26 H (21-25) mmol/L ABG Total CO2 27 H (19-24) mmol/L ABG O2 Saturation (94-97) % Chloride 110 H (98-107) mmol/L BUN 26 H (9-20) mg/dL Glucose 128 H (74-99) mg/dL POC Glucose (mg/dL) (75-99) mg/dL AST 136 H (17-59) U/L ALT 159 H (21-72) U/L Creatine Kinase 251 H (55-170) U/L Total Protein 6.2 L (6.3-8.2) g/dL Albumin (3.5-5.0) g/dL Urine Ketones (Negative) 10/21/17 10/21/17 10/22/17 Range/Units 15:45 20:14 01:34 WBC (3.8-10.6) k/uL RBC (4.30-5.90) m/uL Hgb (13.0-17.5) gm/dL Hct (39.0-53.0) % Neutrophils # (1.3-7.7) k/uL INR (<1.2) ABG pO2 (83-108) mmHg ABG HCO3 (21-25) mmol/L ABG Total CO2 (19-24) mmol/L ABG O2 Saturation (94-97) % Chloride (98-107) mmol/L BUN (9-20) mg/dL Glucose (74-99) mg/dL POC Glucose (mg/dL) 122 H 153 H (75-99) mg/dL AST (17-59) U/L ALT (21-72) U/L Creatine Kinase (55-170) U/L Total Protein (6.3-8.2) g/dL Albumin (3.5-5.0) g/dL Urine Ketones 1+ H (Negative) 10/22/17 10/22/17 10/22/17 Range/Units 04:05 04:05 04:05 WBC 11.0 H (3.8-10.6) k/uL RBC 3.86 L (4.30-5.90) m/uL Hgb 12.6 L (13.0-17.5) gm/dL Hct 37.1 L (39.0-53.0) % Neutrophils # 8.8 H (1.3-7.7) k/uL INR 1.2 H (<1.2) ABG pO2 (83-108) mmHg ABG HCO3 (21-25) mmol/L ABG Total CO2 (19-24) mmol/L ABG O2 Saturation (94-97) % Chloride (98-107) mmol/L BUN (9-20) mg/dL Glucose 132 H (74-99) mg/dL POC Glucose (mg/dL) (75-99) mg/dL AST 72 H (17-59) U/L ALT 115 H (21-72) U/L Creatine Kinase (55-170) U/L Total Protein 5.3 L (6.3-8.2) g/dL Albumin 3.2 L (3.5-5.0) g/dL Urine Ketones (Negative) 03/04/18 03/04/18 03/04/18 Range/Units 04:28 06:17 13:17 WBC (3.8-10.6) k/uL RBC (4.30-5.90) m/uL Hgb (13.0-17.5) gm/dL Hct (39.0-53.0) % Neutrophils # (1.3-7.7) k/uL INR (<1.2) ABG pO2 (83-108) mmHg ABG HCO3 (21-25) mmol/L ABG Total CO2 26 H (19-24) mmol/L ABG O2 Saturation 98.4 H (94-97) % Chloride (98-107) mmol/L BUN (9-20) mg/dL Glucose (74-99) mg/dL POC Glucose (mg/dL) 142 H 151 H (75-99) mg/dL AST (17-59) U/L ALT (21-72) U/L Creatine Kinase (55-170) U/L Total Protein (6.3-8.2) g/dL Albumin (3.5-5.0) g/dL Urine Ketones (Negative) Microbiology - Last 24 Hours (Table) 10/21/17 13:16 Gram Stain - Preliminary Sputum Sputum Culture - Preliminary 10/21/17 20:14 Urine Culture - Preliminary Urine,Catheterized Assessment and Plan Assessment: Probable Overdose -Intentional versus unintentional unknown -Discussed with poison control recommended discontinuation of Tylenol, repeat acetaminophen level in the morning, and 24-hour administration of Acetadote. -Check repeat CPK with TCA on urine drug screen Aborted sudden cardiac -EKG without significant changes -Appears to be respiratory in origin -Monitor telemetry -If any abnormality consider cardiology consultation with this of late bleed thought to be secondary to a pulmonary etiology as patient was witnessed to stop breathing by his father Pneumonia, likely aspiration -Continue with Levaquin, Zosyn -Pulmonary hygiene -Critical care recommendations -Sputum culture -Bronchodilators Anoxic encephalopathy -Poor overall prognosis discussed with mother -Head CT without any acute changes -Neurology recommendations -Daily sedation holiday Tobacco one possible alcohol use -Monitor for signs of alcohol withdrawal Transaminitis -Multiple etiologies possible -Tylenol levels are elevated, acetylcysteine drip discontinued Chronic: Osteoarthritis Narcolepsy ADHD History of cardiac surgery as a child DVT prophylaxis: Lovenox Discussed with: [employer], family Anticipated discharge: undetermined Anticipated discharge place:undetermined A total of 35 minutes was spent on the care of this complex patient more than 50 % of the time was spent in counseling and care coordination.
--- NOTE | 2017-10-22 16:39 | P.PN ---
Subjective Progress Note Date: 10/22/17 This patient is a 31-year-old right-handed white male who was seen in neurologic consultation yesterday in the intensive care unit after having suffered an acute cardiac arrest with anoxic encephalopathy. Patient had an estimated downtime of at least 15-20 minutes before he was resuscitated. Patient was transported to the emergency room where he was intubated and transferred to the intensive care unit yesterday. He was sent for computed tomography scan of the brain which revealed no acute intracranial abnormality. He was placed on Diprivan due to respiratory is changes. He was given a holiday this morning off of all sedation however he became agitated and was placed back on Diprivan. He is currently on 50 mics of Diprivan. Patient has not shown much change in his overall neurological exam from yesterday. He has evidence of a severe anoxic encephalopathy following cardiac arrest. We're waiting for EEG to be done for this patient tomorrow. Which time we will have more information regarding his overall neurological status. As noted CAT scan of the brain was reported negative for any acute changes. Patient mother and stepfather were updated today in the intensive care unit. They were at bedside. His neurological exam finding and status was discussed at length with them. We've explained we will obtain a EEG tomorrow for further evaluation. At this time he has evidence of severe anoxic encephalopathy following cardiac arrest and his prognosis remains guarded. Family has also discussed his findings today with the admitting physician Dr. Mensah in detail. They are aware of his poor overall prognosis. Poison control is also monitoring his condition with the ICU nursing staff. Patient will be able to undergo EEG tomorrow which will be helpful in determining his current condition and help been determining his long-term prognosis. We've explained the reason for EEG in detail to the patient's mother and stepfather and based on these findings further recommendations will be given. Patient will be given drug holiday again tomorrow to see how he responds. He does remain sedated on the ventilator at this time with no significant change from yesterday. ICU nursing staff have not appreciated any twitching or myoclonus. We will continue close neurological follow-up for this patient in the intensive care unit. Objective - Vital Signs Vital signs: Vital Signs Temp 98.5 F 10/22/17 12:00 Pulse 80 03/04/18 15:00 Resp 17 10/22/17 15:00 BP 149/89 10/22/17 15:00 Pulse Ox 99 10/22/17 15:00 Intake & Output 10/21/17 10/22/17 10/22/17 18:59 06:59 18:59 Intake Total 6953.496 5656.5 2402.500 Output Total 2350 1485 860 Balance -3095.981 7852.5 1542.500 Weight 76.657 kg 90.7 kg 90.7 kg Intake: IV 2687.5 1912.5 Acetylcysteine IV 3,800 500 mg In Dextrose 5% in Water 500 ml @ 125 mls/hr IV ONCE ONE Rx#: [id number] Acetylcysteine IV 7,700 437.5 562.5 mg In Dextrose 5% in Water 1,000 ml @ 62.5 mls /hr IV ONCE ONE Rx#: [id number] Magnesium Sulfate-D5w Pmx 100 1 gm In Dextrose/Water 1 100ml.bag @ 100 mls/hr IVPB Q1H [facility] Rx#: [id number] Sodium Chloride 0.9% 1, 1650 1350 000 ml @ 150 mls/hr IV . Q6H40M [facility] Rx#:[id number] Intake, IV Titration 1011.333 400.000 Amount Acetylcysteine IV 11,500 200 mg In Dextrose 5% in Water 200 ml @ 200 mls/hr IV ONCE ONE Rx#: [id number] Levofloxacin 750Mg-D5w 150 Pmx 750 mg In Dextrose/ Water 1 150ml.bag @ 100 mls/hr IVPB Q24H [facility] Rx#: [id number] Magnesium Sulfate-D5w Pmx 100 1 gm In Dextrose/Water 1 100ml.bag @ 100 mls/hr IVPB Q1H [facility] Rx#: [id number] Piperacillin-Tazobactam 3 50 50 .375 gm In Dextrose/Water 1 50ml.bag @ 12.5 mls/hr IVPB Q8HR [facility] Rx#: [id number] Propofol 1,000 mg In 61.333 Empty Bag 1 bag @ 10 MCG/ KG/MIN 4.59 mls/hr IV . [id number] [facility] Rx#:[id number] Propofol 1,000 mg In 200.000 Empty Bag 1 bag @ Titrate IV .Q0M [facility] Rx#: [id number] Sodium Chloride 0.9% 1, 600 000 ml @ 150 mls/hr IV . Q6H40M [facility] Rx#:[id number] Tube Feeding 90 Output: Gastric Drainage 300 Urine 0 1485 860 Uretheral (Mendoza) 600 Other: Voiding Method Indwelling Catheter Indwelling Catheter Indwelling Catheter - Exam Physical examination: PHYSICAL EXAMINATION: Patient is intubated on the ventilator and is sedated. He has no myoclonic jerking on examination today. VITAL SIGNS: Blood pressure is [148/86]. Heart rate is [88]. Respiration is [18] . Temperature is [98.5]. HEENT: Head is atraumatic, neck is supple, there were no carotid bruits. CHEST: Lungs are clear to auscultation and percussion. CARDIAC: S1, S2 normal rate and rhythm. There is no murmur. ABDOMEN: Soft and nontender. Bowel sounds are present. EXTREMITIES: There is no pedal edema. Peripheral pulses are present. Neurological examination: Patient currently intubated on the ventilator and is sedated on Diprivan drip. Cranial nerve examination: Pupils are 4 mm sluggishly responsive to light. Corneal responses depressed bilaterally. Vestibular ocular responses diminished. Gag reflex is present. There is no evidence of any facial asymmetry. Motor examination: Patient does not withdraw to painful stimuli over all 4 extremities at this time. Sensory examination: Patient is laboratory to pinprick over all 4 extremities. Deep tendon reflexes: The DTRs are hypoactive 1+ and symmetric. Plantar responses flexor bilaterally. - Labs CBC & Chem 7: 10/22/17 04:05 10/22/17 04:05 Labs: Abnormal Lab Results - Last 24 Hours (Table) 10/21/17 10/22/17 10/22/17 Range/Units 20:14 01:34 04:05 WBC 11.0 H (3.8-10.6) k/uL RBC 3.86 L (4.30-5.90) m/uL Hgb 12.6 L (13.0-17.5) gm/dL Hct 37.1 L (39.0-53.0) % Neutrophils # 8.8 H (1.3-7.7) k/uL INR (<1.2) ABG Total CO2 (19-24) mmol/L ABG O2 Saturation (94-97) % Glucose (74-99) mg/dL POC Glucose (mg/dL) 153 H (75-99) mg/dL AST (17-59) U/L ALT (21-72) U/L Total Protein (6.3-8.2) g/dL Albumin (3.5-5.0) g/dL Urine Ketones 1+ H (Negative) 10/22/17 10/22/17 10/22/17 Range/Units 04:05 04:05 04:28 WBC (3.8-10.6) k/uL RBC (4.30-5.90) m/uL Hgb (13.0-17.5) gm/dL Hct (39.0-53.0) % Neutrophils # (1.3-7.7) k/uL INR 1.2 H (<1.2) ABG Total CO2 26 H (19-24) mmol/L ABG O2 Saturation 98.4 H (94-97) % Glucose 132 H (74-99) mg/dL POC Glucose (mg/dL) (75-99) mg/dL AST 72 H (17-59) U/L ALT 115 H (21-72) U/L Total Protein 5.3 L (6.3-8.2) g/dL Albumin 3.2 L (3.5-5.0) g/dL Urine Ketones (Negative) 10/22/17 10/22/17 Range/Units 06:17 13:17 WBC (3.8-10.6) k/uL RBC (4.30-5.90) m/uL Hgb (13.0-17.5) gm/dL Hct (39.0-53.0) % Neutrophils # (1.3-7.7) k/uL INR (<1.2) ABG Total CO2 (19-24) mmol/L ABG O2 Saturation (94-97) % Glucose (74-99) mg/dL POC Glucose (mg/dL) 142 H 151 H (75-99) mg/dL AST (17-59) U/L ALT (21-72) U/L Total Protein (6.3-8.2) g/dL Albumin (3.5-5.0) g/dL Urine Ketones (Negative) Microbiology - Last 24 Hours (Table) 03/03/18 13:16 Gram Stain - Preliminary Sputum Sputum Culture - Preliminary 10/21/17 20:14 Urine Culture - Preliminary Urine,Catheterized Assessment and Plan (1) Cardiopulmonary arrest Current Visit: Yes Status: Acute Code(s): I46.9 - CARDIAC ARREST, CAUSE UNSPECIFIED SNOMED Code(s): 235296458 (2) Anoxic encephalopathy Current Visit: Yes Status: Acute Code(s): G93.1 - ANOXIC BRAIN DAMAGE, NOT ELSEWHERE CLASSIFIED SNOMED Code(s): 361924707 (3) Overdose Current Visit: Yes Status: Acute Code(s): T50.901A - POISONING BY UNSP DRUG/ MEDS/BIOL SUBST, ACCIDENTAL, INIT SNOMED Code(s): 12036676 (4) Major depression Current Visit: Yes Status: Acute Code(s): F32.9 - MAJOR DEPRESSIVE DISORDER , SINGLE EPISODE, UNSPECIFIED SNOMED Code(s): 726952863 (5) Suicide attempt Current Visit: Yes Status: Acute Code(s): T14.91XA - SUICIDE ATTEMPT, INITIAL ENCOUNTER SNOMED Code(s): 85545281 Plan: This patient is a 31-year-old male who suffered an acute cardiac arrest with possible drug overdose. He was resuscitated and brought into the emergency room where he was intubated and transferred into the ICU yesterday. Patient had a downtime of at least 15-20 minutes before a pulse was obtained. His neurological examination yesterday was consistent with a severe anoxic encephalopathy following cardiac arrest. He underwent computed tomography scan of the brain yesterday which was negative for any acute process. He remains intubated at this time on a Diprivan drip. He was given a drug holiday earlier today but had to be placed back on sedation due to agitation. He is currently on 50 mics of Diprivan. Chest x-ray reveals improvement in right upper lobe infiltrate. He is currently on a combination of Zosyn and Levaquin. Pulmonary medicine is continuing daily interruption of sedation but so far he is not showing much change or improvement. We will obtain a EEG tomorrow for further evaluation. This patient's neurological status and condition was discussed at length today with the patient's mother and stepfather in the intensive care unit. They were updated on his current neurological findings. They are aware of his very guarded and poor prognosis. We will continue close neurological follow-up with this patient in the intensive care unit.
[2017-10-22 17:56] LABS: Hemoglobin A1C 5.1 % (4.0-6.0)
[2017-10-22] MEDS: INSULIN ASPART 100 UNIT/ML 1 ML 10 ML VIAL SQ SCH ×2 (18:31→23:31)
[2017-10-22 18:32] LABS: Glucose,Whole Blood 122 mg/dL (75-99)
[2017-10-22 23:22] LABS: Glucose,Whole Blood 126 mg/dL (75-99)
[2017-10-23] MEDS: IPRATROPIUM-ALBUTEROL 3 ML NEB INHALATION SCH ×7 (00:21→23:31)
[2017-10-23] MEDS: PROPOFOL 1,000 MG in EMPTY BAG 1 BAG IV SCH ×2 (03:00→18:40)
[2017-10-23 04:51] LABS: Basophils % (A) 0 %; Eosinophils # (A) 0.1 k/uL (0-0.7); Eosinophils % (A) 1 %; HCT 36.7 % (39.0-53.0); HGB 12.1 gm/dL (13.0-17.5); Lymphocytes # (A) 0.6 k/uL (1.0-4.8); Lymphocytes % (A) 7 %; MCH 32.3 pg (25.0-35.0); MCHC 32.9 g/dL (31.0-37.0); MCV 98.2 fL (80.0-100.0); Monocytes # (A) 0.6 k/uL (0-1.0); Monocytes % (A) 6 %; Neutrophils # (A) 8.3 k/uL (1.3-7.7); Neutrophils % (A) 85 %; Platelet Count 177 k/uL (150-450); RBC 3.74 m/uL (4.30-5.90); RDW 14.4 % (11.5-15.5); WBC 9.7 k/uL (3.8-10.6)
[2017-10-23 04:57] LABS: ABG Base Excess 1.2 mmol/L; ABG HCO3 25 mmol/L (21-25); ABG Oxygen Saturation 98.9 % (94-97); ABG PCO2 36 mmHg (35-45); ABG PH 7.46 (7.35-7.45); ABG PO2 132 mmHg (83-108); ABG TCO2 26 mmol/L (19-24)
[2017-10-23 05:02] LABS: Anion Gap 7 mmol/L; Blood Urea Nitrogen 18 mg/dL (9-20); Calcium 8.5 mg/dL (8.4-10.2); Carbon Dioxide 27 mmol/L (22-30); Chloride 104 mmol/L (98-107); Glucose 134 mg/dL (74-99); Phosphorus 3.7 mg/dL (2.5-4.5); Potassium 3.8 mmol/L (3.5-5.1); Sodium 138 mmol/L (137-145)
[2017-10-23] MEDS: INSULIN ASPART 100 UNIT/ML 1 ML 10 ML VIAL SQ SCH ×3 (07:53→18:45)
[2017-10-23 07:54] LABS: Glucose,Whole Blood 162 mg/dL (75-99)
[2017-10-23] MEDS: SODIUM CHLORIDE 0.9% 1,000 ML IV SCH ×3 (07:54→21:21)
[2017-10-23] MEDS ORDERED: POTASSIUM BICARBONATE/CIT AC 20 MEQ TABLET.EFF NG-TUBE ONE (08:00)
--- NOTE | 2017-10-23 08:12 | XR ---
EXAMINATION TYPE: XR chest 1V portable DATE OF EXAM: 10/23/2017 COMPARISON: 10/21/2017 HISTORY: Ventilatory dependent respiratory failure. TECHNIQUE: Single frontal view of the chest is obtained. FINDINGS: The enteric tube is cephalad in position with its fenestrated portionr approximately 9 cm a esdras the gastroesophageal junction. Endotracheal tube has its distal tip at the inferior margin of th e clavicles, also slightly cephalad, although this may be related to the patient's head positioning a nd that appears appropriately placed on the exam of 10/22/2017. Patchy left basilar airspace disease is seen at the costophrenic angle in combination with blunting o f the left costophrenic angle relating to trace pleural effusion. Remainder the lungs are clear. Card iomediastinal silhouette is within normal limits. Osseous structures are grossly intact. IMPRESSION: 1. Cephalad placement of the enteric tube with its fenestrated portion approximately 9 cm from the ga stroesophageal junction. Recommend advancement approximately 9 cm. 2. Patchy left basilar airspace disease that may represent atelectasis or pneumonia and trace left pl eural effusion.
[2017-10-23] MEDS: NICOTINE 21MG/24HR PATCH TRANSDERM SCH (08:37)
[2017-10-23] MEDS: HEPARIN SODIUM,PORCINE 5,000 UNIT/ML 1 ML VIAL SQ SCH ×2 (08:37→16:47)
[2017-10-23] MEDS: CHLORHEXIDINE GLUCONATE 15 ML CUP MUCOUS MEM SCH (08:37)
[2017-10-23] MEDS: MAGNESIUM SULFATE-D5W PMX 1 GM in DEXTROSE/WATER 1 100ML.BAG IVPB SCH ×2 (08:37→09:37)
[2017-10-23] MEDS: DOCUSATE 100 MG CAP PO SCH ×2 (08:37→22:03)
[2017-10-23] MEDS: PANTOPRAZOLE 40 MG/10 ML VIAL IV SCH (08:37)
[2017-10-23] MEDS: PIPERACILLIN-TAZOBACTAM 3.375 GM in DEXTROSE/WATER 1 50ML.BAG IVPB SCH ×2 (08:39→16:47)
--- NOTE | 2017-10-23 08:58 | P.PN ---
Subjective Progress Note Date: 10/23/17 Principal diagnosis: unresponsive Patient is a 31-year-old male with a past medical history of polysubstance abuse, narcolepsy, and ADHD who presented to the hospital via EMS after being found unresponsive by his father. His father woke up about 4 AM and saw him taking some respirations and then stopped breathing. He immediately started CPR along with the police. EMS then arrived and he was administered one of IV and Narcan. He was intubated in the field and brought to the hospital. It appears that he likely had about 15-20 minutes of a down time per the father. On arrival here he was unresponsive and maintain on the vent. He underwent a CT of the brain which showed no acute process. He underwent an EKG which showed possible lateral ischemia but no acute ST-T wave changes. He underwent a CTA of the chest which showed scattered infiltrate and a chest x-ray consistent with pneumonia. He was started on IV Levaquin and IV fluids. His maintain off sedation and was having a gag and spontaneous movements. Orders were written for the ICU. He was seen by Dr. Washington for pulmonary critical care. Around noon on 10/21 he started becoming tachycardic and coughing. He was started on propofol but remained tachycardic. Nurses noted increasing rigidity in his lower extremities. He was seen by neurology who felt his chances of neurologic recovery were overall poor. His vitals remained stable overnight on 10/21. NO acute events overnight on 10/22. Patient seen and examined at bedside. Off sedation on vent NO purposeful movements. Objective - Vital Signs Vital signs: Vital Signs Temp 98.4 F 10/23/17 04:00 Pulse 52 L 10/23/17 08:00 Resp 18 10/23/17 08:00 BP 164/101 10/23/17 08:00 Pulse Ox 99 10/23/17 08:00 Intake & Output 10/22/17 10/23/17 10/23/17 18:59 06:59 18:59 Intake Total 3022.500 2989.9 520 Output Total 1125 705 135 Balance 9466.071 2447.9 385 Weight 90.7 kg Intake: IV 2362.5 1850.0 300 Acetylcysteine IV 7,700 562.5 mg In Dextrose 5% in Water 1,000 ml @ 62.5 mls /hr IV ONCE ONE Rx#: [id number] Piperacillin-Tazobactam 3 50.0 .375 gm In Dextrose/Water 1 50ml.bag @ 12.5 mls/hr IVPB Q8HR [facility] Rx#: [id number] Sodium Chloride 0.9% 1, 1800 1800 300 000 ml @ 150 mls/hr IV . Q6H40M [facility] Rx#:[id number] Intake, IV Titration 450.000 344.9 100 Amount Levofloxacin 750Mg-D5w 150 Pmx 750 mg In Dextrose/ Water 1 150ml.bag @ 100 mls/hr IVPB Q24H [facility] Rx#: [id number] Magnesium Sulfate-D5w Pmx 100 1 gm In Dextrose/Water 1 100ml.bag @ 100 mls/hr IVPB Q1H [facility] Rx#: [id number] Piperacillin-Tazobactam 3 100 .375 gm In Dextrose/Water 1 50ml.bag @ 12.5 mls/hr IVPB Q8HR [facility] Rx#: [id number] Propofol 1,000 mg In 200.000 344.9 Empty Bag 1 bag @ Titrate IV .Q0M [facility] Rx#: [id number] Tube Feeding 210 705 90 Other 90 30 Output: Urine 1125 705 135 Other: Voiding Method Indwelling Catheter Indwelling Catheter - Exam General: non toxic, no distress, appears at stated age, sedated on vent Derm: warm, dry Head: atraumatic, normocephalic, symmetric Eyes: Pupils equal and round, right pupil reactive to light, PERRL, anicteric sclera Mouth: no lip lesion, ET tube in place Cardiovascular: S1S2 reg, no murmur, positive posterior tibial pulse bilateral, Lungs: CTA bilateral, no rhonchi, no rales , no accessory muscle use, on vent Abdominal: soft, nontender to palpation, no guarding, no appreciable organomegaly, NG tube in place with dark drainage Ext: no gross muscle atrophy, no edema, no contractures Neuro: Off propofol. No withdrawal to pain in all 4 extremities. Increased rigidity of bilateral lower extremities. No clonus. + cough, + gag, No posturing Psych: No purposeful movements - Labs CBC & Chem 7: 10/23/17 04:26 10/23/17 04:26 Labs: Abnormal Lab Results - Last 24 Hours (Table) 03/12/0610/22/17 10/22/17 Range/Units 13:17 18:30 23:20 RBC (4.30-5.90) m/uL Hgb (13.0-17.5) gm/dL Hct (39.0-53.0) % Neutrophils # (1.3-7.7) k/uL Lymphocytes # (1.0-4.8) k/uL ABG pH (7.35-7.45) ABG pO2 (83-108) mmHg ABG Total CO2 (19-24) mmol/L ABG O2 Saturation (94-97) % Glucose (74-99) mg/dL POC Glucose (mg/dL) 151 H 122 H 126 H (75-99) mg/dL 10/23/17 10/23/17 10/23/17 Range/Units 04:26 04:26 04:55 RBC 3.74 L (4.30-5.90) m/uL Hgb 12.1 L (13.0-17.5) gm/dL Hct 36.7 L (39.0-53.0) % Neutrophils # 8.3 H (1.3-7.7) k/uL Lymphocytes # 0.6 L (1.0-4.8) k/uL ABG pH 7.46 H (7.35-7.45) ABG pO2 132 H (83-108) mmHg ABG Total CO2 26 H (19-24) mmol/L ABG O2 Saturation 98.9 H (94-97) % Glucose 134 H (74-99) mg/dL POC Glucose (mg/dL) (75-99) mg/dL 10/23/17 Range/Units 07:52 RBC (4.30-5.90) m/uL Hgb (13.0-17.5) gm/dL Hct (39.0-53.0) % Neutrophils # (1.3-7.7) k/uL Lymphocytes # (1.0-4.8) k/uL ABG pH (7.35-7.45) ABG pO2 (83-108) mmHg ABG Total CO2 (19-24) mmol/L ABG O2 Saturation (94-97) % Glucose (74-99) mg/dL POC Glucose (mg/dL) 162 H (75-99) mg/dL Microbiology - Last 24 Hours (Table) 10/21/17 20:14 Urine Culture - Final Urine,Catheterized 10/21/17 13:16 Gram Stain - Preliminary Sputum Sputum Culture - Preliminary Assessment and Plan Assessment: Probable Overdose -Intentional versus unintentional unknown -Discussed with poison control recommended discontinuation of Tylenol, repeat acetaminophen level in the morning, and 24-hour administration of Acetadote. Aborted sudden cardiac -EKG without significant changes -Appears to be respiratory in origin -Monitor telemetry -If any abnormality consider cardiology consultation with this of late bleed thought to be secondary to a pulmonary etiology as patient was witnessed to stop breathing by his father -Echo Pneumonia, likely aspiration -Continue with Levaquin, Zosyn -Pulmonary hygiene -Critical care recommendations -Sputum culture -Bronchodilators Anoxic encephalopathy -Poor overall prognosis discussed with mother -Head CT without any acute changes -Neurology recommendations appreciated, EEG today -Daily sedation holiday Tobacco one possible alcohol use -Monitor for signs of alcohol withdrawal Transaminitis -Multiple etiologies possible -Tylenol levels are elevated, acetylcysteine drip discontinued Chronic: Osteoarthritis Narcolepsy ADHD History of cardiac surgery as a child DVT prophylaxis: Lovenox Discussed with: INSTRUCTIONAL CONSULTANT, No family present at bedside. Anticipated discharge: undetermined Anticipated discharge place:undetermined A total of 35 minutes was spent on the care of this complex patient more than 50 % of the time was spent in counseling and care coordination.
[2017-10-23 11:30] VITALS: BMI 29.9
[2017-10-23 12:20] LABS: Glucose,Whole Blood 136 mg/dL (75-99)
--- NOTE | 2017-10-23 12:32 | P.PN ---
Subjective Progress Note Date: 10/23/17 A 31-year-old male patient, post car to pulmonary arrest related to drug overdose, post severe anoxic encephalopathy, being seen in follow-up today in the intensive care unit. The patient's estimated down time was at least 15 minutes on the field. The patient remains intubated on a mechanical ventilator. Diprivan was discontinued 6 AM this morning. On today's known evaluation, the patient is completely unresponsive. He does not respond to any painful stimuli. Unable to elicit any Babinski or clonus. Pupils are round 7- 8 mm in size and they're not reactive to light. No corneal reflex. He is breathing above the mechanical ventilator at the rate of 26 and the vent is set at the rate of 18. Chest x-ray shows limited bibasilar pulmonary infiltrates consistent with pneumonia. He spike a temperature of 102 this afternoon and the patient is currently on IV Zosyn for possible aspiration pneumonia. Hemodynamically stable. Patient is on normal saline at the rate of 1 50 mL an hour and the patient is producing adequate amount of urine output and he is on no pressors. Neurology is on the case. EEG was done this morning. Family is at the bedside. Unfortunately they have poor prognosis was discussed with the family. No decisions on his CODE STATUS and I think he is going to stay full code for now. I do not appreciate any seizure activity nor the nursing staff. Objective - Vital Signs Vital signs: Vital Signs Temp 102 F H 10/23/17 12:00 Pulse 112 H 10/23/17 12:00 Resp 25 H 10/23/17 12:00 BP 176/93 10/23/17 12:00 Pulse Ox 95 10/23/17 12:00 Intake & Output 10/22/17 10/23/17 10/23/17 18:59 06:59 18:59 Intake Total 3022.500 2989.9 1525 Output Total 1125 705 740 Balance 1331.057 9817.9 785 Weight 90.7 kg 91.9 kg Intake: IV 2362.5 1850.0 950 Acetylcysteine IV 7,700 562.5 mg In Dextrose 5% in Water 1,000 ml @ 62.5 mls /hr IV ONCE ONE Rx#: [id number] Piperacillin-Tazobactam 3 50.0 50 .375 gm In Dextrose/Water 1 50ml.bag @ 12.5 mls/hr IVPB Q8HR [facility] Rx#: [id number] Sodium Chloride 0.9% 1, 1800 1800 900 000 ml @ 150 mls/hr IV . Q6H40M [facility] Rx#:[id number] Intake, IV Titration 450.000 344.9 200 Amount Levofloxacin 750Mg-D5w 150 Pmx 750 mg In Dextrose/ Water 1 150ml.bag @ 100 mls/hr IVPB Q24H [facility] Rx#: [id number] Magnesium Sulfate-D5w Pmx 200 1 gm In Dextrose/Water 1 100ml.bag @ 100 mls/hr IVPB Q1H [facility] Rx#: [id number] Piperacillin-Tazobactam 3 100 .375 gm In Dextrose/Water 1 50ml.bag @ 12.5 mls/hr IVPB Q8HR [facility] Rx#: [id number] Propofol 1,000 mg In 200.000 344.9 Empty Bag 1 bag @ Titrate IV .Q0M [facility] Rx#: [id number] Tube Feeding 210 705 315 Other 90 60 Output: Urine 1125 705 740 Other: Voiding Method Indwelling Catheter Indwelling Catheter Indwelling Catheter - Exam General: non toxic, no distress, appears at stated age, nonacute distress, intubated on a mechanical ventilator, orotracheal gastric tube are both in place. Derm: warm, dry Head: atraumatic, normocephalic, symmetric Eyes: Of a millimeter pupils, nonreactive to light Mouth: no lip lesion, ET tube in place Cardiovascular: S1S2 reg, no murmur, positive posterior tibial pulse bilateral, Lungs: CTA bilateral, no rhonchi, no rales , no accessory muscle use, on vent Abdominal: soft, nontender to palpation, no guarding, no appreciable organomegaly, NG tube in place with dark drainage Ext: no gross muscle atrophy, no edema, no contractures Neuro: Patient is been off sedation. Pupils are round 7-8 mm in size and they are not reactive to light. No corneal reflex. There is a mild gag and cough reflex and the patient is triggering the mechanical ventilator. He does not withdraw to any painful stimuli. No Babinski. No clonus. No seizure activity was noted. Psych: Unable to do due to above Examination of the skin revealed no evidence of significant rashes, suspicious appearing nevi or other concerning lesions. - Labs CBC & Chem 7: 10/23/17 04:26 10/23/17 04:26 Labs: Abnormal Lab Results - Last 24 Hours (Table) 10/22/17 10/22/17 10/22/17 Range/Units 13:17 18:30 23:20 RBC (4.30-5.90) m/uL Hgb (13.0-17.5) gm/dL Hct (39.0-53.0) % Neutrophils # (1.3-7.7) k/uL Lymphocytes # (1.0-4.8) k/uL ABG pH (7.35-7.45) ABG pO2 (83-108) mmHg ABG Total CO2 (19-24) mmol/L ABG O2 Saturation (94-97) % Glucose (74-99) mg/dL POC Glucose (mg/dL) 151 H 122 H 126 H (75-99) mg/dL 10/23/17 10/23/17 10/23/17 Range/Units 04:26 04:26 04:55 RBC 3.74 L (4.30-5.90) m/uL Hgb 12.1 L (13.0-17.5) gm/dL Hct 36.7 L (39.0-53.0) % Neutrophils # 8.3 H (1.3-7.7) k/uL Lymphocytes # 0.6 L (1.0-4.8) k/uL ABG pH 7.46 H (7.35-7.45) ABG pO2 132 H (83-108) mmHg ABG Total CO2 26 H (19-24) mmol/L ABG O2 Saturation 98.9 H (94-97) % Glucose 134 H (74-99) mg/dL POC Glucose (mg/dL) (75-99) mg/dL 10/23/17 10/23/17 Range/Units 07:52 12:18 RBC (4.30-5.90) m/uL Hgb (13.0-17.5) gm/dL Hct (39.0-53.0) % Neutrophils # (1.3-7.7) k/uL Lymphocytes # (1.0-4.8) k/uL ABG pH (7.35-7.45) ABG pO2 (83-108) mmHg ABG Total CO2 (19-24) mmol/L ABG O2 Saturation (94-97) % Glucose (74-99) mg/dL POC Glucose (mg/dL) 162 H 136 H (75-99) mg/dL Microbiology - Last 24 Hours (Table) 10/21/17 13:16 Gram Stain - Final Sputum Sputum Culture - Final 10/21/17 20:14 Urine Culture - Final Urine,Catheterized Assessment and Plan Plan: Assessment 1 severe hypoxic respiratory failure secondary to cardiac pulmonary arrest and drug overdose 2 history of polysubstance abuse with probable drug overdose 3 bilateral aspiration pneumonia 4 fever secondary to pneumonia. 5 abnormal LFTs, improving 6 leukocytosis improving Plan Continue supportive care. Continue treating the pneumonia with accommodation Levaquin and Zosyn. Monitor fever pattern. IV Tylenol for fever. Proceed with repeating the CAT scan of the brain without contrast. EEG today awaiting results. Prognosis poor. Discussed the findings with the patient's mother. He remains in a full CODE STATUS for now. Awaiting further input from neurology. We'll continue to follow and provide supportive care in the ICU. Continue DVT and GI prophylaxis. Continue tube feeds. We'll follow. Critically care evaluation. 31 minutes.. Time with Patient: Greater than 30
[2017-10-23] MEDS: LEVOFLOXACIN 750MG-D5W PMX 750 MG in DEXTROSE/WATER 1 150ML.BAG IVPB SCH (12:37)
[2017-10-23] MEDS: ACETAMINOPHEN IV (For NPO) 1,000 MG in EMPTY BAG 1 BAG IVPB PRN ×2 (13:14→22:22)
[2017-10-23] MEDS ORDERED: IBUPROFEN 400 MG TAB PO PRN (14:32)
--- NOTE | 2017-10-23 17:02 | EEG ---
ELECTROENCEPHALOGRAM REPORT DATE OF EE10/23/2017. REFERRING PHYSICIAN: Dr. Mensah. INTERPRETING PHYSICIAN: Dr. Darby Caballero MD ELECTROENCEPHALOGRAPHIC EXAMINATION REPORT: INDICATION FOR EXAMINATION: This patient is a 31-year-old male, who suffered cardiopulmonary arrest with a down time of 15-20 minutes. The patient currently intubated on the ventilator and is unresponsive and comatose. AGE: [age]. EEG FINDINGS: A routine 21 channel awake digital EEG recording was accomplished utilizing the 10-20 international system with bipolar and referential montages. At a sensitivity setting of 7 microvolts there is minimal brain activity seen throughout the entire tracing. Occasional artifact is noted. At a sensitive setting of 5 microvolts, there is low amplitude activity noted in the range of 5 Hz. At a sensitivity setting of 2 microvolts low amplitude activity is once again seen throughout. There was minimal amount of low amplitude 18-20 Hz beta activity seen in a generalized fashion. Hyperventilation was not performed. Photic stimulation at flash frequencies of 2-30 Hz produced a minimal occipital driving response. No epileptiform discharges were seen. IMPRESSION: This EEG at a sensitivity setting of 7 microvolts reveals very minimal brain activity. At a sensitivity of 5 and 2 microvolts there is some brain activity seen. This EEG findings suggest a severe anoxic encephalopathy following cardiac arrest. This finding also suggesting possible impending brain . A followup EEG is strongly recommended. Clinical correlation is recommended. MMSEANL / IJCesar: [id number] /
[2017-10-23] MEDS: LABETALOL 5 MG/ML VIAL MDV IVP PRN ×2 (17:45→22:23)
[2017-10-23 17:46] LABS: Glucose,Whole Blood 143 mg/dL (75-99)
--- NOTE | 2017-10-23 17:46 | P.PN ---
Subjective Progress Note Date: 10/23/17 This patient is a 31-year-old right-handed white male who is seen today in the intensive care unit following an episode of cardiac arrest. Patient was found unresponsive at home and was given CPR. His downtime was estimated to be 15-20 minutes before he was resuscitated. He was brought into the emergency room where he was intubated and transferred into the intensive care unit. Patient underwent an initial computed tomography scan of the brain which revealed no acute abnormality. Patient remains intubated and is unresponsive. Patient was able to complete a EEG today which was reviewed. EEG reveals minimal brain activity at a sensitivity setting of 7 V. His neurological examination today reveals him to have impaired corneal response with a gag reflex present. He does not withdraw to painful stimuli. He is noted to have a temperature today which is being evaluated and treated. The patient remains comatose since his initial presentation into the intensive care unit. Family including mother and stepfather have been updated on his poor prognosis yesterday. We did complete his EEG today and the results were reviewed today with the patient's mother at bedside. His prognosis given this EEG finding still remains very poor. She would like to continue all current treatment lands with the patient. We will plan to get a repeat EEG in 2 days. Patient's neurological examination still shows no significant change or improvement. We've explained to the mother that we can wait and have a repeat EEG to see if there is any significant improvement. He has suffered an acute and severe anoxic encephalopathy following his cardiac arrest. His pupils today are slightly dilated and poorly responsive. We have recommended a computed tomography scan of the brain to be done to further evaluate for vasogenic edema. The mother has spoken with Dr. Mensah and Dr. Gibbs today and they have also expressed concern of a very poor prognosis for this patient overall given his recent history. We will obtain a follow-up EEG on Monday and this will be discussed with the mother once again. At this time he is to remain on full supportive care. We will continue close neurological follow-up at this patient in the intensive care unit. His overall prognosis at this time still remains very guarded. Objective - Vital Signs Vital signs: Vital Signs Temp 101 F H 10/23/17 17:00 Pulse 126 H 10/23/17 17:00 Resp 27 H 10/23/17 17:00 BP 164/77 10/23/17 17:00 Pulse Ox 95 10/23/17 17:00 Intake & Output 10/22/17 10/23/17 10/23/17 18:59 06:59 18:59 Intake Total 3022.500 2989.9 2725 Output Total 9152 142 1539 Balance 7829.498 2911.9 620 Weight 90.7 kg 91.9 kg Intake: IV 2362.5 1850.0 1550 Acetylcysteine IV 7,700 562.5 mg In Dextrose 5% in Water 1,000 ml @ 62.5 mls /hr IV ONCE ONE Rx#: [id number] Piperacillin-Tazobactam 3 50.0 50 .375 gm In Dextrose/Water 1 50ml.bag @ 12.5 mls/hr IVPB Q8HR [facility] Rx#: [id number] Sodium Chloride 0.9% 1, 1800 1800 1500 000 ml @ 150 mls/hr IV . Q6H40M [facility] Rx#:[id number] Intake, IV Titration 450.000 344.9 450 Amount ACETAMINOPHEN IV (For NPO 100 ) 1,000 mg In Empty Bag 1 bag @ 400 mls/hr IVPB Q6HR [facility] Rx#:[id number] Levofloxacin 750Mg-D5w 150 150 Pmx 750 mg In Dextrose/ Water 1 150ml.bag @ 100 mls/hr IVPB Q24H [facility] Rx#: [id number] Magnesium Sulfate-D5w Pmx 200 1 gm In Dextrose/Water 1 100ml.bag @ 100 mls/hr IVPB Q1H [facility] Rx#: [id number] Piperacillin-Tazobactam 3 100 .375 gm In Dextrose/Water 1 50ml.bag @ 12.5 mls/hr IVPB Q8HR [facility] Rx#: [id number] Propofol 1,000 mg In 200.000 344.9 0 Empty Bag 1 bag @ Titrate IV .Q0M [facility] Rx#: [id number] Tube Feeding 210 705 605 Other 90 120 Output: Urine 4747 677 8127 Other: Voiding Method Indwelling Catheter Indwelling Catheter Indwelling Catheter - Exam Physical examination: PHYSICAL EXAMINATION: Patient is intubated on the ventilator and is sedated. He has no myoclonic jerking on examination today. VITAL SIGNS: Blood pressure is [164/77]. Heart rate is [118]. Respiration is [27 ]. Temperature is [101]. HEENT: Head is atraumatic, neck is supple, there were no carotid bruits. CHEST: Lungs are clear to auscultation and percussion. CARDIAC: S1, S2 normal rate and rhythm. There is no murmur. ABDOMEN: Soft and nontender. Bowel sounds are present. EXTREMITIES: There is no pedal edema. Peripheral pulses are present. Neurological examination: Patient currently intubated on the ventilator and is sedated on Diprivan drip. Cranial nerve examination: Pupils are 7 mm sluggishly responsive to light. Corneal responses depressed bilaterally. Vestibular ocular responses diminished. Gag reflex is present. There is no evidence of any facial asymmetry. Motor examination: Patient does not withdraw to painful stimuli over all 4 extremities at this time. Sensory examination: Patient does not withdraw to pinprick over all 4 extremities. Deep tendon reflexes: The DTRs are hypoactive 1+ and symmetric. Plantar responses flexor bilaterally. - Labs CBC & Chem 7: 10/23/17 04:26 10/23/17 04:26 Labs: Abnormal Lab Results - Last 24 Hours (Table) 10/22/17 10/22/17 10/23/17 Range/Units 18:30 23:20 04:26 RBC 3.74 L (4.30-5.90) m/uL Hgb 12.1 L (13.0-17.5) gm/dL Hct 36.7 L (39.0-53.0) % Neutrophils # 8.3 H (1.3-7.7) k/uL Lymphocytes # 0.6 L (1.0-4.8) k/uL ABG pH (7.35-7.45) ABG pO2 (83-108) mmHg ABG Total CO2 (19-24) mmol/L ABG O2 Saturation (94-97) % Glucose (74-99) mg/dL POC Glucose (mg/dL) 122 H 126 H (75-99) mg/dL 10/23/17 10/23/17 10/23/17 Range/Units 04:26 04:55 07:52 RBC (4.30-5.90) m/uL Hgb (13.0-17.5) gm/dL Hct (39.0-53.0) % Neutrophils # (1.3-7.7) k/uL Lymphocytes # (1.0-4.8) k/uL ABG pH 7.46 H (7.35-7.45) ABG pO2 132 H (83-108) mmHg ABG Total CO2 26 H (19-24) mmol/L ABG O2 Saturation 98.9 H (94-97) % Glucose 134 H (74-99) mg/dL POC Glucose (mg/dL) 162 H (75-99) mg/dL 10/23/17 Range/Units 12:18 RBC (4.30-5.90) m/uL Hgb (13.0-17.5) gm/dL Hct (39.0-53.0) % Neutrophils # (1.3-7.7) k/uL Lymphocytes # (1.0-4.8) k/uL ABG pH (7.35-7.45) ABG pO2 (83-108) mmHg ABG Total CO2 (19-24) mmol/L ABG O2 Saturation (94-97) % Glucose (74-99) mg/dL POC Glucose (mg/dL) 136 H (75-99) mg/dL Microbiology - Last 24 Hours (Table) 10/21/17 13:16 Gram Stain - Final Sputum Sputum Culture - Final 10/21/17 20:14 Urine Culture - Final Urine,Catheterized Assessment and Plan (1) Cardiopulmonary arrest Current Visit: Yes Status: Acute Code(s): I46.9 - CARDIAC ARREST, CAUSE UNSPECIFIED SNOMED Code(s): 736155004 (2) Anoxic encephalopathy Current Visit: Yes Status: Acute Code(s): G93.1 - ANOXIC BRAIN DAMAGE, NOT ELSEWHERE CLASSIFIED SNOMED Code(s): 217329482 (3) Overdose Current Visit: Yes Status: Acute Code(s): T50.901A - POISONING BY UNSP DRUG/ MEDS/BIOL SUBST, ACCIDENTAL, INIT SNOMED Code(s): 76701704 (4) Major depression Current Visit: Yes Status: Acute Code(s): F32.9 - MAJOR DEPRESSIVE DISORDER , SINGLE EPISODE, UNSPECIFIED SNOMED Code(s): 884102827 (5) Suicide attempt Current Visit: Yes Status: Acute Code(s): T14.91XA - SUICIDE ATTEMPT, INITIAL ENCOUNTER SNOMED Code(s): 44966183 Plan: This patient is a 31-year-old male who suffered a cardiopulmonary arrest with the downtime estimated to be 15-20 minutes. He had history of polysubstance abuse and drug overdose. He was found unresponsive at home by his father. His downtime was estimated to be 15-20 minutes before pulse was obtained. He is now intubated on the ventilator in the intensive care unit. His initial CAT scan of the brain failed to reveal any acute changes. He remains in the intensive care unit on the ventilator. He was given a sedation holiday early this morning. He is now been placed back on Diprivan to obtain a follow-up computed tomography scan of the brain today. Patient did undergo a routine EEG today which was reviewed the results are as noted above. His EEG findings were discussed at length with the patient's mother at bedside in the ICU. Given the EEG findings his overall prognosis remains very poor. There was only minimal brain activity noted at a very high sensitivity setting on the EEG. We will plan to get a repeat and follow up EEG for him on Monday for comparison. The patient's mother would like to continue all current treatment plans for the patient. We will continue to monitor his progress very closely in the intensive care unit. Case was discussed today with Dr. Gibbs. We will await his follow-up CAT scan of the brain to be done today and we'll give further recommendations. As noted by other physicians his overall prognosis still remains very poor. We will continue close neurological follow-up with this patient in the intensive care unit.
--- NOTE | 2017-10-23 20:22 | XR ---
EXAMINATION TYPE: XR abdomen 1V DATE OF EXAM: 10/23/2017 COMPARISON: NONE INDICATION: Abdominal distention TECHNIQUE: Single view abdomen supine view FINDINGS: There is within the stomach. A nasogastric tube passes through the lower thoracic region with tip in the left upper quadrant of the abdomen. Colonic bowel gas and fecal debris is evident. No mass effect is evident. Psoas margins are poorly visualized. Organomegaly is not evident. IMPRESSION: 1. Nasogastric tube tip within the left upper quadrant abdomen. 2. Nonspecific abdomen.
--- NOTE | 2017-10-23 20:38 | CT ---
EXAMINATION TYPE: CT brain wo con DATE OF EXAM: 10/23/2017 COMPARISON: 10/21/2017 INDICATION: Follow up scan DLP: 1075.4 mGycm, Automated exposure control for dose reduction was used. CONTRAST: None CT of the brain is performed utilizing 3 mm thick sections through the posterior fossa and 3 mm thick sections through the remaining calvarium. Study is not performed within 24 hours of arrival to the hospital. Order is entered a routine. There is complete loss of the berkowitz-white matter differentiation. Sulci are lost. Lateral ventricles a re slitlike. Third ventricle is not identified. Fourth ventricle is midline. No temporal horn dilatat ion is evident. There is nonvisualization of the quadrigeminal plate and ambient cistern. Note is made of some calcification with smooth borders within the right frontal lobe. Nasogastric tube and endotracheal tuber present. There is opacification of portions of the paranasal sinuses was can be associated with a nasogastric tube placement. IMPRESSIONS: 1. Loss of the berkowitz-white matter differentiation with diffuse edema can be compatible with anoxic i njury. This includes bilateral cerebral hemispheres as well as the cerebellum. 2. Report was called to the ICU nurse Rogelio, by Dr. Reyes at the time of interpretation.
[2017-10-23] MEDS ORDERED: DEXAMETHASONE SOD PHOSPHATE 10 MG/ML 1 ML VIAL IV STA (20:51)
--- NOTE | 2017-10-23 21:44 | P.PN ---
Subjective Progress Note Date: 10/23/17 This patient is a 31-year-old right-handed white male who was seen earlier today in the intensive care unit following cardiopulmonary arrest and drug overdose. Patient remains intubated on the ventilator. Patient was sent for a repeat computed tomography scan of the brain this evening which was just completed and read by the radiologist. CAT scan of the brain reveals evidence of loss of berkowitz-white matter differentiation with diffuse edema which can be compatible with anoxic injury. This includes bilateral cerebral hemispheres as well as cerebellum. Report was called to the ICU nurse by the radiologist this evening at 2023. We did review the CAT scan report as well as a CAT scan films today. We have spoken to the patient's mother and stepfather today in the intensive care unit. We've advised them of the critical finding of this CAT scan from showing significant cerebral edema which would require immediate neurosurgical evaluation. We have spoken to them earlier today about his EEG results which suggest a very poor prognosis. Given this CAT scan finding the prognosis seems to be even worse. We've explained the possibility of having neurosurgery evaluation and for this he would need to be transferred to a tertiary center. This was discussed with the patient's mother and stepfather in detail. They would like to proceed and have him evaluated by neurosurgery. We did contact the neuro event planning intern at [facility] by phone Dr. Brown. His history and case was discussed with Dr. Brown in detail. They have excepted the patient for transfer to [facility] neuro intensive care unit for further management. They also feel that his prognosis is quite poor. We have once again discussed these findings in detail with the patient's mother and stepfather and they would like to proceed with transfer. We are waiting a bed assignment from [facility] at which time he will be transferred either by air ambulance or EMS as soon as possible when a bed is available. This case was discussed again at length with the patient's family members in detail. We have notified Dr. Gibbs of this CAT scan findings and the family's wish to have him transferred as soon as possible to [facility]. Objective - Vital Signs Vital signs: Vital Signs Temp 99.7 F H 10/23/17 19:00 Pulse 105 H 10/23/17 20:14 Resp 20 10/23/17 20:00 BP 155/78 10/23/17 19:00 Pulse Ox 97 10/23/17 19:00 Intake & Output 10/23/17 10/23/17 10/24/17 06:59 18:59 06:59 Intake Total 2989.9 3134.5 159.897 Output Total 705 3555 275 Balance 2284.9 -420.5 -115.103 Weight 91.9 kg Intake: IV 1850.0 1850 150 Piperacillin-Tazobactam 3 50.0 50 .375 gm In Dextrose/Water 1 50ml.bag @ 12.5 mls/hr IVPB Q8HR YE Rx#: [id number] Sodium Chloride 0.9% 1, 1800 1800 150 000 ml @ 150 mls/hr IV . Q6H40M [facility] Rx#:[id number] Intake, IV Titration 344.9 504.5 9.897 Amount ACETAMINOPHEN IV (For NPO 100 ) 1,000 mg In Empty Bag 1 bag @ 400 mls/hr IVPB Q6HR PRN Rx#:[id number] Levofloxacin 750Mg-D5w 150 Pmx 750 mg In Dextrose/ Water 1 150ml.bag @ 100 mls/hr IVPB Q24H YE Rx#: [id number] Magnesium Sulfate-D5w Pmx 200 1 gm In Dextrose/Water 1 100ml.bag @ 100 mls/hr IVPB Q1H [facility] Rx#: [id number] Propofol 1,000 mg In 344.9 54.5 9.897 Empty Bag 1 bag @ Titrate IV .Q0M YE Rx#: [id number] Tube Feeding 705 660 0 Other 90 120 Output: Urine 705 3555 275 Other: Voiding Method Indwelling Catheter Indwelling Catheter Indwelling Catheter - Exam Physical examination: PHYSICAL EXAMINATION: Patient is resting comfortably in bed. VITAL SIGNS: Blood pressure is [155/78]. Heart rate is [117]. Respiration is [26 ]. Temperature is [99.7]. HEENT: Head is atraumatic, neck is supple, there were no carotid bruits. CHEST: Lungs are clear to auscultation and percussion. CARDIAC: S1, S2 normal rate and rhythm. There is no murmur. ABDOMEN: Soft and nontender. Bowel sounds are present. EXTREMITIES: There is no pedal edema. Peripheral pulses are present. Neurological examination: Patient's neurological examination unchanged from earlier today. Patient remains comatose on the ventilator. Pupils 5 mm are sluggishly reactive. Corneal response is sluggish bilaterally. Gag reflex is present. Patient does not withdraw to painful stimuli overall 4 extremities. Deep tendon reflexes are hypoactive. Plantar responses flexor bilaterally. - Labs CBC & Chem 7: 10/23/17 04:26 10/23/17 04:26 Labs: Abnormal Lab Results - Last 24 Hours (Table) 10/22/17 10/23/17 10/23/17 Range/Units 23:20 04:26 04:26 RBC 3.74 L (4.30-5.90) m/uL Hgb 12.1 L (13.0-17.5) gm/dL Hct 36.7 L (39.0-53.0) % Neutrophils # 8.3 H (1.3-7.7) k/uL Lymphocytes # 0.6 L (1.0-4.8) k/uL ABG pH (7.35-7.45) ABG pO2 (83-108) mmHg ABG Total CO2 (19-24) mmol/L ABG O2 Saturation (94-97) % Glucose 134 H (74-99) mg/dL POC Glucose (mg/dL) 126 H (75-99) mg/dL 10/23/17 10/23/17 10/23/17 Range/Units 04:55 07:52 12:18 RBC (4.30-5.90) m/uL Hgb (13.0-17.5) gm/dL Hct (39.0-53.0) % Neutrophils # (1.3-7.7) k/uL Lymphocytes # (1.0-4.8) k/uL ABG pH 7.46 H (7.35-7.45) ABG pO2 132 H (83-108) mmHg ABG Total CO2 26 H (19-24) mmol/L ABG O2 Saturation 98.9 H (94-97) % Glucose (74-99) mg/dL POC Glucose (mg/dL) 162 H 136 H (75-99) mg/dL 10/23/17 Range/Units 17:44 RBC (4.30-5.90) m/uL Hgb (13.0-17.5) gm/dL Hct (39.0-53.0) % Neutrophils # (1.3-7.7) k/uL Lymphocytes # (1.0-4.8) k/uL ABG pH (7.35-7.45) ABG pO2 (83-108) mmHg ABG Total CO2 (19-24) mmol/L ABG O2 Saturation (94-97) % Glucose (74-99) mg/dL POC Glucose (mg/dL) 143 H (75-99) mg/dL Microbiology - Last 24 Hours (Table) 10/21/17 13:16 Gram Stain - Final Sputum Sputum Culture - Final 10/21/17 20:14 Urine Culture - Final Urine,Catheterized Assessment and Plan (1) Cardiopulmonary arrest Current Visit: Yes Status: Acute Code(s): I46.9 - CARDIAC ARREST, CAUSE UNSPECIFIED SNOMED Code(s): 610168583 (2) Anoxic encephalopathy Current Visit: Yes Status: Acute Code(s): G93.1 - ANOXIC BRAIN DAMAGE, NOT ELSEWHERE CLASSIFIED SNOMED Code(s): 405088646 (3) Overdose Current Visit: Yes Status: Acute Code(s): T50.901A - POISONING BY UNSP DRUG/ MEDS/BIOL SUBST, ACCIDENTAL, INIT SNOMED Code(s): 51431686 (4) Major depression Current Visit: Yes Status: Acute Code(s): F32.9 - MAJOR DEPRESSIVE DISORDER , SINGLE EPISODE, UNSPECIFIED SNOMED Code(s): 136529816 (5) Suicide attempt Current Visit: Yes Status: Acute Code(s): T14.91XA - SUICIDE ATTEMPT, INITIAL ENCOUNTER SNOMED Code(s): 97304117 Plan: Patient underwent computed tomography scan of the brain this evening and CAT scan results were reviewed. CAT scan does reveal evidence of loss of berkowitz- white matter differentiation with diffuse edema compatible with anoxic injury. CAT scan results were discussed today at length with the patient's mother and stepfather in the intensive care unit. Given the severity of his cerebral edema we have started him on IV Decadron. He may also require neurosurgical evaluation. For this reason the family would like to proceed to have him transferred to a tertiary Center for neurosurgical evaluation. We've explained to them the poor prognosis given his findings earlier today. They still would like to proceed with transfer to a tertiary center. We did contact [facility] neuro intensive care unit and spoke with Dr. rBown and his current neurological assessment and findings were discussed with him in detail. The patient is now been accepted for transfer to [facility] as soon as a ICU bed is available. We have relayed this information to the family who is at bedside. We will continue current supportive care here and will await transfer this patient emergently to [facility] neuro intensive care unit further further management and assessment. Once again his overall prognosis at this time remains very poor. The physician at [facility] is Dr. Brown who is accepted him in transfer today to the neuro intensive care unit for immediate evaluation. We have discussed all of these details with his mother and stepfather and all of their questions were answered. They are aware of his poor prognosis. We will continue this give supportive care as needed. This patient's findings were relayed to Dr. Gibbs today. He is in full agreement for transfer this patient as soon as possible.
[2017-10-23 22:03] VITALS: RESP 22
[2017-10-23 23:47] VITALS: PULSE 104
[2017-10-23 23:48] VITALS: BP 166/94; TEMP 101.5
[2017-10-24] MEDS ORDERED: DEXAMETHASONE SOD PHOSPHATE 10 MG/ML 1 ML VIAL IV SCH
[2017-10-24] MEDS: CHLORHEXIDINE GLUCONATE 15 ML CUP MUCOUS MEM SCH (00:01)
--- NOTE | 2017-10-24 15:53 | P.DS ---
Providers Date of admission: 10/21/17 09:36 Expected date of discharge: 10/23/17 Attending physician: Emilie Mensah DO Consults: 10/21/17 09:36 Consult Physician Routine Consulting Provider: Lv Washington Consult Reason/Comments: icu Do you want consulting provider notified?: Yes Consult Physician Routine Consulting Provider: Darby Caballero Consult Reason/Comments: neuro Do you want consulting provider notified?: Yes Primary care physician: Stated None - Discharge Diagnosis(es) (1) Cerebral edema due to anoxia Status: Acute (2) Anoxic encephalopathy Status: Acute (3) Aspiration pneumonia Status: Acute (4) Transaminitis Status: Acute (5) Tobacco abuse Status: Acute (6) Cardiac arrest Status: Acute (7) Overdose Status: Acute Hospital Course: Patient is a 31-year-old male with a past medical history of polysubstance abuse, narcolepsy, and ADHD who presented to the hospital via EMS after being found unresponsive by his father. His father woke up about 4 AM and saw him taking some respirations and then stopped breathing. He immediately started CPR along with the police. EMS then arrived and he was administered one of IV and Narcan. He was intubated in the field and brought to the hospital. It appears that he likely had about 15-20 minutes of down time per the father. On arrival here he was unresponsive and maintain on the vent. He underwent a CT of the brain which showed no acute process. He underwent an EKG which showed possible lateral ischemia but no acute ST-T wave changes. He underwent a CTA of the chest which showed scattered infiltrate and a chest x-ray consistent with pneumonia. He was started on IV Levaquin and IV fluids. His maintain off sedation and was having a gag and spontaneous movements. Orders were written for the ICU. He was seen by Dr. Washington for pulmonary critical care. Around noon on 10/21 he started becoming tachycardic and coughing. He was started on propofol but remained tachycardic. Nurses noted increasing rigidity in his lower extremities. He was seen by neurology who felt his chances of neurologic recovery were overall poor. His vitals remained stable overnight on 10/21. He had no acute events on 10/22 or 10/23 but had no signs of neurologic recovery. He had an EEG on 10/23 that showed severe anoxic encephalopathy and impending brain . Follow-up head CT showed loss of berkowitz- white matter junction and diffuse cerebral edema. Neurology recommended transfer for evaluation by neurosurgery. [facility] was contacte by Dr. Sanderson and agreed to accept the patient. [facility]. For physical exam please see progress 10/23/17 A total of 25 minutes of time were spent preparing this complex discharge summary . Pertinent Studies: Head CT 10/21/17-no acute process Head CT 10/23/17-loss of berkowitz-white matter differentiation and diffuse cerebral edema EEG-grossly abnormal with signs of impending brain done CTA of the chest-no PE, scattered old infiltrates throughout both lungs Patient Condition at Discharge: Critical Plan - Discharge Summary Discharge Rx Participant: No New Discharge Prescriptions: No Action Guaifen/Phenyleph/Acetaminophn [Tylenol Sinus Severe Caplet] 2 tab PO Q4H PRN PRN Reason: Congestion Zrvzpbz-Igiy-Tosc [id number] [Excedrin] 1 tab PO Q4HR PRN PRN Reason: Migraine Headache predniSONE 5 mg PO DAILY Methotrexate Sodium [Methotrexate] 2.5 mg PO DAILY Folic Acid 1 mg PO DAILY Pregabalin [Lyrica] 150 mg PO TID Gabapentin [Neurontin] 300 mg PO AC-BID Ibuprofen [Motrin Ib] 200 - 400 mg PO Q6H PRN PRN Reason: Pain Doxepin HCl [SINEquan] 50 mg PO DAILY Discharge Medication List Xcurtuk-Ydsq-Uokx [id number] [Excedrin] 1 tab PO Q4HR PRN 10/21/17 [History] Folic Acid 1 mg PO DAILY 10/21/17 [History] Gabapentin [Neurontin] 300 mg PO AC-BID 10/21/17 [History] Guaifen/Phenyleph/Acetaminophn [Tylenol Sinus Severe Caplet] 2 tab PO Q4H PRN [History] Ibuprofen [Motrin Ib] 200 - 400 mg PO Q6H PRN 10/21/17 [History] Methotrexate Sodium [Methotrexate] 2.5 mg PO DAILY 10/21/17 [History] Pregabalin [Lyrica] 150 mg PO TID 10/21/17 [History] predniSONE 5 mg PO DAILY 10/21/17 [History] Doxepin HCl [SINEquan] 50 mg PO DAILY 10/22/17 [History] Follow up Appointment(s)/Referral(s): None,Stated [Primary Care Provider] - 1-2 days Discharge Disposition: OTHER INSTITUTION NOT DEFINED
== END 2017-10-23 23:53 | disposition short-term general hospital (02) | DRG 917 ==
LOC: EC 06:27 → 6ICU 09:36
PROVIDERS: ADMIT Internal Medicine; ATTEND Internal Medicine
PROC: 5A1945Z Respiratory Ventilation, 24-96 Consecutive Hours (ICD-10-PCS; principal; 2017-10-21)
PROC: 0DH67UZ Insertion of Feeding Device into Stomach, Via Natural or Artificial Opening (ICD-10-PCS; 2017-10-21)
PROC: 3E0G76Z Introduction of Nutritional Substance into Upper GI, Via Natural or Artificial Opening (ICD-10-PCS; 2017-10-21)
DX: T50.901A Poisoning by unspecified drugs, medicaments and biological substances, accidental (unintentional), initial encounter (principal); J69.0 Pneumonitis due to inhalation of food and vomit; I46.9 Cardiac arrest, cause unspecified; G93.6 Cerebral edema; J96.01 Acute respiratory failure with hypoxia; G93.1 Anoxic brain damage, not elsewhere classified; G25.3 Myoclonus; R40.2442 Other coma, without documented Glasgow coma scale score, or with partial score reported, at arrival to emergency department; F11.10 Opioid abuse, uncomplicated; F19.10 Other psychoactive substance abuse, uncomplicated; F17.200 Nicotine dependence, unspecified, uncomplicated; G47.419 Narcolepsy without cataplexy; M19.91 Primary osteoarthritis, unspecified site; F32.9 Major depressive disorder, single episode, unspecified; R74.0 Nonspecific elevation of levels of transaminase and lactic acid dehydrogenase [LDH]; F90.9 Attention-deficit hyperactivity disorder, unspecified type; Z91.5 Personal history of self-harm; Z79.82 Long term (current) use of aspirin; Z79.899 Other long term (current) drug therapy; Z79.52 Long term (current) use of systemic steroids; Z98.890 Other specified postprocedural states; Z81.8 Family history of other mental and behavioral disorders; Y92.000 Kitchen of unspecified non-institutional (private) residence as the place of occurrence of the external cause
CPT/HCPCS: 36415; 36600; 43753; 51702; 70450; 71045; 71275; 74018; 80048; 80053; 80306; 80320; 81003; 82271; 82272; 82550; 82553; 82805; 83036; 83520; 83605; 83690; 83735; 84100; 84484; 85025; 85027; 85379; 85610; 85730; 87040; 87070; 87086; 87205; 93005; 93306; 94002; 94003; 94640; 95816; 96365; 96366; 96367; 99291